=== PATIENT | female | born 1955 | race Caucasian/White ===

== ENCOUNTER 2018-03-11 14:53 | Inpatient (IN) | payer MEDICAID ==
[2018-03-11 14:57] VITALS: BMI 29.2
[2018-03-11] MEDS ORDERED: Sodium Chloride 0.9% 500 ML IV ONE (15:18)
--- NOTE | 2018-03-11 15:45 | C.PDOC ---
History Of Present Illness 62 year old female with multiple medical problems including Lupus and RA presents to the emergency department with complaints of a one to two day history of very dark urine and left flank pain radiating towards the groin with some dysuria. Patient reports that she visited a pharmacy in [place] where she was given two separate courses of Ciprofloxacin, one for three days and one for five days. She denies nausea, vomiting, and diarrhea. Time Seen by Provider: 03/11/18 15:05 Chief Complaint (Nursing): Female Genitourinary History Per: Patient Onset/Duration Of Symptoms: Days (1-2) Current Symptoms Are (Timing): Still Present Quality Of Discomfort: "Pain" Associated Symptoms: Urinary Symptoms (dysuria). denies: Fever, Chills Past Medical History Reviewed: Historical Data, Nursing Documentation, Vital Signs Vital Signs: Last Vital Signs Temp 97.5 F L 03/11/18 14:57 Pulse 99 H 03/11/18 14:57 Resp 18 03/11/18 14:57 BP 126/83 03/11/18 14:57 Pulse Ox 97 03/11/18 17:05 - Medical History PMH: Anxiety (NO MEDS AT PRESENT), Arthritis, Asthma, Colonic Polyps, Depression (NO MEDS AT PRESENT), Gastritis, Gall Bladder Disease, Hypercholesterolemia, Rheumatoid Arthritis Denies: Chronic Kidney Disease Surgical History: Cholecystectomy, Endoscopy - [facility] Procedures CLOSED ENDOSCOPIC BIOPSY OF LARGE INTESTINE (04/11/14) COLONOSCOPY (11/27/13) ESOPHAGOGASTRODUODENOSCOPY [EGD] W/CLOSED BIOPSY (04/23/14) Family History: States: No Known Family Hx - Social History Hx Alcohol Use: No Hx Substance Use: No - Immunization History Hx Tetanus Toxoid Vaccination: No Hx Influenza Vaccination: No Hx Pneumococcal Vaccination: No Review Of Systems Constitutional: Negative for: Fever, Chills Gastrointestinal: Negative for: Nausea, Vomiting, Diarrhea Genitourinary: Positive for: Dysuria Musculoskeletal: Positive for: Back Pain (left flank pain), Other (groin pain) Physical Exam - Physical Exam Appears: Non-toxic, No Acute Distress Skin: Warm, Dry Head: Atraumatic, Normacephalic Eye(s): bilateral: Normal Inspection Nose: Normal Neck: Normal, Supple Chest: Symmetrical, No Tenderness Cardiovascular: Rhythm Regular, No Murmur Respiratory: Normal Breath Sounds, No Rales, No Rhonchi, No Wheezing Gastrointestinal/Abdominal: Normal Exam, Soft, Tenderness (LLQ), No Guarding, No Rebound Back: Normal Inspection, CVA Tenderness (left-sided) Extremity: Normal ROM Neurological/Psych: Oriented x3, Normal Speech, Normal Cognition ED Course And Treatment - Laboratory Results Result Diagrams: 03/11/18 15:50 03/11/18 15:50 O2 Sat by Pulse Oximetry: 97 (RA) Pulse Ox Interpretation: Normal Medical Decision Making Medical Decision Making: Impression: Pyelonephritis vs. Kidney Stone Plan: CT Abdomen and Pelvis CMP CBC Morphine 2mg IVP NaCl IV Fluids Toradol 15mg IVP Tylenol 975mg PO Urine Culture Urinalysis 1700 pt with pain still; second dose toradol given. dose rocephin given . discussed with dr healy, pt to be admitted to his service. Disposition Discussed With .: Cesar Beverly Doctor Will See Patient In The: Hospital Counseled Patient/Family Regarding: Studies Performed, Diagnosis - Disposition Disposition: HOSPITALIZED Disposition Time: 17:06 Condition: STABLE Forms: [employer] (British) - Clinical Impression Clinical Impression: Pyelonephritis, acute - PA / TOOL AND DIE TECHNICIAN / Resident Statement MD/DO has reviewed & agrees with the documentation as recorded. - Scribe Statement The provider has reviewed the documentation as recorded by the Scribe (Ramon Vargas) All medical record entries made by the Scribe were at my direction and personally dictated by me. I have reviewed the chart and agree that the record accurately reflects my personal performance of the history, physical exam, medical decision making, and the department course for this patient. I have also personally directed, reviewed, and agree with the discharge instructions and disposition.
[2018-03-11 15:55] LABS: BASO # 0.1 K/uL (0.0-0.2); BASO % 0.5 % (0.0-2.0); EOS # 0.1 K/uL (0.0-0.7); EOS % 0.5 % (0.0-4.0); HEMOGLOBIN 15.6 g/dL (11.0-16.0); LYMPH # 2.8 K/uL (1.0-4.3); LYMPH % 23.7 % (20.0-40.0); MEAN CELL VOLUME 92.7 fL (81.0-99.0); MEAN CORPUSCULAR HGB CONC 33.5 g/dL (33.0-37.0); MEAN PLATELET VOLUME 8.4 fL (7.2-11.7); MONO # 0.7 K/uL (0.0-0.8); MONO % 5.5 % (0.0-10.0); NEUT # 8.4 K/uL (1.8-7.0); NEUT % 69.8 % (50.0-75.0); NRBC % 0.1 % (0.0-2.0); RBC 5.02 Mil/uL (3.80-5.20)
[2018-03-11 16:01] LABS: URINE BILIRUBIN NEGATIVE (NEGATIVE); URINE BLOOD 3+ (NEGATIVE); URINE CLARITY Hazy (Clear); URINE COLOR Amber (YELLOW); URINE GLUCOSE (UA) NORMAL (Normal); URINE LEUKOCYTE ESTERASE 3+ Leu/uL (Negative); URINE PROTEIN 2+ mg/dL (NEGATIVE); URINE UROBILINOGEN NORMAL mg/dL (0.2-1.0)
[2018-03-11 16:07] LABS: ALB/GLOB RATIO 1.3 (1.0-2.1); ALBUMIN 4.4 g/dL (3.5-5.0); ALT/SGPT 15 U/L (9-52); AST/SGOT 17 U/L (14-36); BLOOD UREA NITROGEN 17 mg/dL (7-17); CALCIUM 9.7 mg/dl (8.6-10.4); GFR AFRICAN-AMERICAN > 60; GFR NON-AFRICAN AMERICAN > 60
[2018-03-11] MEDS ORDERED: cefTRIAXone IV 1 gm in Dextros 1 GM in Dextrose 5% In Water 50 ML IVPB STA (16:19)
--- NOTE | 2018-03-11 16:25 | CT ---
Date of service: 03/11/2018 PROCEDURE: CT Abdomen and Pelvis without intravenous contrast HISTORY: left flank pain hematuria COMPARISON: None. TECHNIQUE: Multiple contiguous axial images were performed through the abdomen and pelvis without the use of intravenous contrast. Subsequently, sagittal and coronal reformatted images were obtained. Radiation dose: Total exam DLP = 612 mGy-cm. This CT exam was performed using one or more of the following dose reduction techniques: Automated exposure control, adjustment of the mA and/or kV according to patient size, and/or use of iterative reconstruction technique. FINDINGS: LOWER THORAX: Atelectasis at the lung bases. Punctate 1-2 millimeter pulmonary nodules within the inferior aspect of the right upper lobe. LIVER: Within the lateral peripheral aspect of the right lobe liver on series 3, image 29 at the junction with the right adrenal gland there is an ovoid low-attenuation 1.3 centimeter lesion demonstrating a Hounsfield unit attenuation of approximately 1. This is of uncertain clinical etiology and may represent a hepatic and or adrenal lesion. Correlation with thin slice multiphasic CT would be helpful for further evaluation if clinically indicated. GALLBLADDER AND BILE DUCTS: Prior cholecystectomy. PANCREAS: Unremarkable. No gross lesion or ductal dilatation. SPLEEN: Unremarkable. ADRENALS: See above. KIDNEYS AND URETERS: Large 1.6 centimeter calculus seen within the midpole of the left kidney without evidence gross hydronephrosis. Punctate 2 millimeter calculus seen within the lower pole of the left kidney. 1.2 centimeter low-attenuation lesion seen within the lower pole of the left kidney, too small to adequately characterize. VASCULATURE: Calcification and plaque within the aorta and vessels. BOWEL: Diverticulosis. Under distended descending and sigmoid colon. Mild fecal retention in the right hemicolon. APPENDIX: Not well visualized. PERITONEUM: Unremarkable. No free fluid. No free air. LYMPH NODES: Shotty para-aortic and mesenteric lymph nodes. Lymph BLADDER: Unremarkable. REPRODUCTIVE: Unremarkable. BONES: No acute fracture. OTHER FINDINGS: None. IMPRESSION: 1. Large 1.6 centimeter calculus seen within the midpole of the left kidney without evidence gross hydronephrosis. Punctate 2 millimeter calculus seen within the lower pole of the left kidney. 1.2 centimeter low-attenuation lesion seen within the lower pole of the left kidney, too small to adequately characterize. 2. Within the lateral peripheral aspect of the right lobe liver on series 3, image 29 at the junction with the right adrenal gland there is an ovoid low-attenuation 1.3 centimeter lesion demonstrating a Hounsfield unit attenuation of approximately 1. This is of uncertain clinical etiology and may represent a hepatic and or adrenal lesion. Correlation with thin slice multiphasic CT would be helpful for further evaluation if clinically indicated. 3. Diverticulosis. Under distended descending and sigmoid colon. Mild fecal retention in the right hemicolon.
[2018-03-11] MEDS ORDERED: cefTRIAXone IV 1 gm in Dextros 50 ML IVPB ONE (16:27)
[2018-03-11 18:49] VITALS: RESP 20
[2018-03-11] MEDS: Oxycodone/Acetaminophen 5/325 mg Tab PO PRN (19:11)
[2018-03-12] MEDS: Oxycodone/Acetaminophen 5/325 mg Tab PO PRN ×3 (03:14→17:52)
[2018-03-12] MEDS: Sucralfate 1 gm/10 ml Oral Susp UD PO SCH ×2 (09:50→17:54)
[2018-03-12] MEDS: Pantoprazole 40 mg EC Tab PO SCH (09:50)
[2018-03-12] MEDS: Enoxaparin 40 mg Syringe SC SCH (09:52)
[2018-03-13] MEDS: Oxycodone/Acetaminophen 5/325 mg Tab PO PRN ×4 (01:45→19:00)
--- NOTE | 2018-03-13 07:45 | HP ---
HISTORY OF PRESENT ILLNESS: The patient chief complaint fever, weakness, and abdominal pain. The patient has past kidney stone and progressive pyelonephritis. Advised admission. PHYSICAL EXAMINATION: GENERAL: The patient is awake, alert, and oriented. VITAL SIGNS: Temperature 98, pulse 90. HEENT: Within normal limits. NECK: Supple. CHEST: Symmetrical. HEART: Regular. ABDOMEN: Left flank tenderness. EXTREMITIES: No edema. ASSESSMENT AND PLAN: The patient suffers from pyelonephritis, kidney stone. The patient to get bed rest. IV antibiotics. consult. Cesar Beverly MD
[2018-03-13] MEDS: Sucralfate 1 gm/10 ml Oral Susp UD PO SCH ×2 (09:05→20:01)
[2018-03-13] MEDS: Pantoprazole 40 mg EC Tab PO SCH (09:06)
--- NOTE | 2018-03-13 11:05 | CP.PCM.PN ---
Subjective - Date & Time of Evaluation Date of Evaluation: 03/13/18 Time of Evaluation: 11:02 - Subjective Subjective: Patient seen and examined at bedside. Per nursing no acute events occurred overnight. Patient still reports some left sided flank pain and gross blood in the urine. She denies any chest pain, shortness of breath, fevers, chills, nausea, vomiting, changes in vision, abdominal pain, or any other complaints. Objective - Vital Signs/Intake and Output Vital Signs (last 24 hours): Temp Pulse Resp BP Pulse Ox 97.5 F L 69 20 152/73 H 95 03/13/18 07:45 03/13/18 07:45 03/13/18 07:45 03/13/18 07:45 03/13/18 07:45 Intake and Output: 03/13/18 03/13/18 06:59 18:59 Intake Total 540 Balance 540 - Medications Medications: Current Medications Enoxaparin Sodium (Lovenox) 40 mg SC DAILY [facility] Last Admin: 03/12/18 09:52 Dose: Not Given Hydroxychloroquine Sulfate (Plaquenil) 200 mg PO BID [facility] PRN Reason: Protocol Last Admin: 03/13/18 09:06 Dose: 200 mg Meropenem 1 gm/ Sodium (Chloride) 100 mls @ 100 mls/hr IVPB Q8 [facility] PRN Reason: Protocol Morphine Sulfate (Morphine) 2 mg IVP Q4H PRN PRN Reason: Pain, severe (8-10) Last Admin: 03/13/18 08:42 Dose: 2 mg Oxycodone/Acetaminophen (Percocet 5/325 Mg Tab) 1 tab PO Q4H PRN PRN Reason: Pain, moderate (4-7) Stop: 03/14/18 18:59 Last Admin: 03/13/18 09:39 Dose: 1 tab Pantoprazole Sodium (Protonix Ec Tab) 40 mg PO DAILY [facility] Last Admin: 03/13/18 09:06 Dose: 40 mg Rosuvastatin Calcium (Crestor) 5 mg PO HS [facility] Last Admin: 03/12/18 21:42 Dose: 5 mg Sucralfate (Carafate Oral Susp) 1 gm PO BID [facility] Last Admin: 03/13/18 09:05 Dose: 1 gm - Labs Labs: 03/11/18 15:50 03/11/18 15:50 - Head Exam Head Exam: ATRAUMATIC, NORMAL INSPECTION, NORMOCEPHALIC - Eye Exam Eye Exam: EOMI, Normal appearance, PERRL Pupil Exam: NORMAL ACCOMODATION, PERRL. absent: Irregular, Unequal - ENT Exam ENT Exam: Mucous Membranes Moist, Normal Exam, Normal Oropharynx - Respiratory Exam Respiratory Exam: Clear to Ausculation Bilateral, NORMAL BREATHING PATTERN. absent: Chest Wall Tenderness, Prolonged Expiratory Phase, Respiratory Distress - Cardiovascular Exam Cardiovascular Exam: REGULAR RHYTHM, +S1, +S2 - GI/Abdominal Exam GI & Abdominal Exam: Soft, Normal Bowel Sounds. absent: Rigid, Hyperactive Bowel Sounds - Extremities Exam Extremities Exam: Normal Inspection. absent: Pedal Edema - Back Exam Back Exam: CVA tenderness (L), NORMAL INSPECTION. absent: CVA tenderness (R), paraspinal tenderness - Neurological Exam Neurological Exam: Alert, Awake, CN II-XII Intact, Oriented x3 - Psychiatric Exam Psychiatric exam: Normal Affect, Normal Mood - Skin Skin Exam: Dry, Intact, Normal Color Assessment and Plan - Assessment and Plan (Free Text) Assessment: 62 year old female with a past medical history of lupus, rheumatoid arthritits, depression, nephrolithiasis, pyelonephritis and hypercholesterolemia who was admitted for left flank pain and dysuria. Plan: 1.UTI -Urine cultures: positive growth for Proteus Mirabilis -Meropenem IV Q8 Started (Day 1: 03/13/18) -Infectious Disease (Dr. Hitchcock) Consulted. Help appreciated. -Encourage oral hydration 2.Nephrolithiais -Abdomen/pelvis CT: Shows Large 1.6cm calculus within midpole without hydronephrosis -Urology (Dr. Castellanos) consulted. Help appreciated. -Morphine 2mg IVP Q4 PRN for pain management. 3.history of hypercholesterolemia -Continue Crestor 5mg PO HS [facility]. PPX -Lovenox -Protonix Plan discussed with Attending Dr. Beverly. Presley Sims, PGY-2
[2018-03-13] MEDS: Enoxaparin 40 mg Syringe SC SCH (11:34)
--- NOTE | 2018-03-13 12:58 | CP.PCM.CON ---
History of Present Illness - History of Present Illness History of Present Illness: 62 year old female with multiple medical problems including Lupus and RA presents to the emergency department with complaints of a one to two day history of very dark urine and left flank pain radiating towards the groin with some dysuria. Patient reports that she visited a pharmacy in [place] where she was given two separate courses of Ciprofloxacin, one for three days and one for five days. She denies nausea, vomiting, and diarrhea. still c/o left flank pain and dark urine iv rx in progress - Medical History PMH: Anxiety (NO MEDS AT PRESENT), Arthritis, Asthma, Colonic Polyps, Depression (NO MEDS AT PRESENT), Gastritis, Gall Bladder Disease, Hypercholesterolemia, Rheumatoid Arthritis Denies: Chronic Kidney Disease Surgical History: Cholecystectomy, Endoscopy - [facility] Procedures CLOSED ENDOSCOPIC BIOPSY OF LARGE INTESTINE (04/11/14) COLONOSCOPY (11/27/13) ESOPHAGOGASTRODUODENOSCOPY [EGD] W/CLOSED BIOPSY (04/23/14) Review of Systems - Review of Systems All systems: reviewed and no additional remarkable complaints except - Constitutional Constitutional: As Per HPI - EENT Eyes: absent: As Per HPI, Blind Spots, Blurred Vision, Change in Vision, Decreased Night Vision, Diplopia, Discharge, Dry Eye, Exophthalmos, Floaters, Irritation, Itchy Eyes, Loss of Peripheral Vision, Pain, Photophobia, Requires Corrective Lenses, Sees Flashes, Spots in Vision, Tunnel Vision, Other Visual Disturbances, Loss of Vision, Other Ears: absent: As Per HPI, Decreased Hearing, Ear Discharge, Ear Pain, Tinnitus, Abnormal Hearing, Disequilibrium, Dizziness, Other Nose/Mouth/Throat: absent: As Per HPI, Epistaxis, Nasal Congestion, Nasal Discharge, Nasal Obstruction, Nasal Trauma, Nose Pain, Post Nasal Drip, Sinus Pain, Sinus Pressure, Bleeding Gums, Change in Voice, Dental Pain, Dry Mouth, Dysphagia, Halitosis, Hoarsness, Lip Swelling, Mouth Lesions, Mouth Pain, Odynophagia, Sore Throat, Throat Swelling, Tongue Swelling, Facial Pain, Neck Pain, Neck Mass, Other - Breasts Breasts: absent: As Per HPI, Change in Shape, Mass, Pain, Nipple Discharge, Nipple Inversion, Skin Changes, Swelling, Other - Cardiovascular Cardiovascular: absent: As Per HPI, Acrocyanosis, Chest Pain, Chest Pain at Rest , Chest Pain with Activity, Claudication, Diaphoresis, Dyspnea, Dyspnea on Exertion, Edema, Irregular Heart Rhythm, Pain Radiating to Arm/Neck/Jaw, Leg Edema, Leg Ulcers, Lightheadedness, Orthopnea, Palpitations, Paroxysmal Nocturnal Dyspnea, Pedal Edema, Radiating Pain, Rapid Heart Rate, Slow Heart Rate, Syncope, Other - Respiratory Respiratory: absent: As Per HPI, Cough, Dyspnea, Hemoptysis, Dyspnea on Exertion , Wheezing, Snoring, Stridor, Pain on Inspiration, Chest Congestion, Excessive Mucous Production, Change in Mucous Color, Pain with Coughing, Other - Gastrointestinal Gastrointestinal: absent: As Per HPI, Abdominal Pain, Belching, Bloating, Change in Bowel Habits, Change in Stool Character, Coffee Ground Emesis, Constipation, Cramping, Diarrhea, Dyspepsia, Dysphagia, Early Satiety, Excessive Flatus, Fecal Incontinence, Heartburn, Hematemesis, Hematochezia, Loose Stools, Melena, Nausea, Odynophagia, Temesmus, Vomiting, Other - Genitourinary Genitourinary: As Per HPI - Reproductive: Female Reproductive:Female: absent: As Per HPI, Amenorrhea, Amenorrhea/ Control, Currently Menstual, Cycle <21 Days, Cycle >35 Days, Cycle Variable, Menses 1-7 Days, Menses >/= 8 Days, Menses Variable, Cycle > 4 Weeks Between, No Menses for 6 Months, Heavy Menses, Light Menses, Normal Menses, Spotting Between Cycles , S/P Hysterectomy, Menopausal, Post Menopausal, Premenarche, Abnormal Vaginal Bleeding, Dysmenorrhea, Dyspareunia, Genital Lesions, Genital Pruritis, Pelvic Pain, Prolapse Symptoms, Sexual Dysfunction, Vaginal Discharge, Vaginal Dryness , Vaginal Odor, Vaginal Pruritis, Other - Menstruation Menstruation: absent: As Per HPI, Amenorrhea, Amenorrhea/ Control, Currently Menstual, Cycle <21 Days, Cycle >35 Days, Cycle Variable, Menses 1-7 Days, Menses >/= 8 Days, Menses Variable, Cycle > 4 Weeks Between, No Menses for 6 Months, Heavy Menses, Light Menses, Normal Menses, Spotting Between Cycles , S/P Hysterectomy, Menopausal, Post Menopausal, Premenarche, Abnormal Vaginal Bleeding, Dysmenorrhea, Other - Integumentary Integumentary: absent: As Per HPI, Acne, Alopecia, Bleeding Lesions, Change in Hair, Change in Nails, Change in Pigmentation, Changing Lesions, Dry Skin, Erythema, Furuncle, Hirsutism, Lesions, New Lesions, Non-Healing Lesions, Photosensitivity, Pruritus, Rash, Skin Pain, Skin Ulcer, Sores, Striae, Swelling , Unusual Bruising, Wounds, Jaundice, Other - Neurological Neurological: absent: As Per HPI, Abnormal Gait, Abnormal Hearing, Abnormal Movements, Abnormal Speech, Behavioral Changes, Burning Sensations, Confusion, Convulsions, Disequilibrium, Dizziness, Numbness, Focal Weakness, Frequent Falls , Headaches, Lack of Coordination, Loss of Vision, Memory Loss, Paresthesias, Radicular Pain, Restless Legs, Sensory Deficit, Syncope, Tingling, Tremor, Vertigo, Weakness, Other Visual Disturbances, Other Past Patient History - Past Medical History & Family History Past Medical History?: Yes - Past Social History Smoking Status: Current Some Days Smoker - CARDIAC Hx Hypercholesterolemia: Yes - PULMONARY Hx Asthma: Yes - NEUROLOGICAL Hx Neurological Disorder: No - HEENT Hx HEENT Problems: No - RENAL Hx Chronic Kidney Disease: No - ENDOCRINE/METABOLIC Hx Endocrine Disorders: Yes Hx Systemic Lupus Erythematosus: Yes - HEMATOLOGICAL/ONCOLOGICAL Hx Blood Disorders: No - INTEGUMENTARY Hx Dermatological Problems: No - MUSCULOSKELETAL/RHEUMATOLOGICAL Hx Arthritis: Yes Hx Rheumatoid Arthritis: Yes - GASTROINTESTINAL Hx Gall Bladder Disease: Yes Hx Gastritis: Yes - GENITOURINARY/GYNECOLOGICAL Hx Genitourinary Disorders: No - PSYCHIATRIC Hx Anxiety: Yes (NO MEDS AT PRESENT) Hx Depression: Yes (NO MEDS AT PRESENT) Hx Substance Use: No - SURGICAL HISTORY Hx Cholecystectomy: Yes - ANESTHESIA Hx Anesthesia: Yes Hx Anesthesia Reactions: No Hx Malignant Hyperthermia: No Meds Allergies/Adverse Reactions: Allergies Allergy/AdvReac Type Severity Reaction Status Date / Time No Known Allergies Allergy Verified 03/11/18 14:57 - Medications Medications: Current Medications Enoxaparin Sodium (Lovenox) 40 mg SC DAILY [facility] Last Admin: 03/13/18 11:34 Dose: Not Given Hydroxychloroquine Sulfate (Plaquenil) 200 mg PO BID [facility] PRN Reason: Protocol Last Admin: 03/13/18 09:06 Dose: 200 mg Meropenem 1 gm/ Sodium (Chloride) 100 mls @ 100 mls/hr IVPB Q8 [facility] PRN Reason: Protocol Morphine Sulfate (Morphine) 2 mg IVP Q4H PRN PRN Reason: Pain, severe (8-10) Last Admin: 03/13/18 08:42 Dose: 2 mg Oxycodone/Acetaminophen (Percocet 5/325 Mg Tab) 1 tab PO Q4H PRN PRN Reason: Pain, moderate (4-7) Stop: 03/14/18 18:59 Last Admin: 03/13/18 09:39 Dose: 1 tab Pantoprazole Sodium (Protonix Ec Tab) 40 mg PO DAILY [facility] Last Admin: 03/13/18 09:06 Dose: 40 mg Rosuvastatin Calcium (Crestor) 5 mg PO HS [facility] Last Admin: 03/12/18 21:42 Dose: 5 mg Sucralfate (Carafate Oral Susp) 1 gm PO BID [facility] Last Admin: 03/13/18 09:05 Dose: 1 gm Physical Exam - Constitutional Appears: Non-toxic, Chronically Ill - Head Exam Head Exam: NORMOCEPHALIC - Eye Exam Eye Exam: PERRL - ENT Exam ENT Exam: Mucous Membranes Dry - Neck Exam Neck exam: Negative for: Lymphadenopathy - Respiratory Exam Respiratory Exam: Decreased Breath Sounds - Cardiovascular Exam Cardiovascular Exam: REGULAR RHYTHM - GI/Abdominal Exam GI & Abdominal Exam: Diminished Bowel Sounds, Distended, Soft. absent: Tenderness - Rectal Exam Rectal Exam: Deferred - Exam Exam: NORMAL INSPECTION - Extremities Exam Extremities exam: Negative for: pedal edema - Back Exam Back exam: CVA tenderness (L). absent: CVA tenderness (R), paraspinal tenderness - Neurological Exam Neurological exam: Alert, CN II-XII Intact, Oriented x3, Reflexes Normal - Psychiatric Exam Psychiatric exam: Normal Mood - Skin Skin Exam: Dry Results - Vital Signs Recent Vital Signs: Last Vital Signs Temp 97.5 F L 03/13/18 07:45 Pulse 69 03/13/18 07:45 Resp 20 03/13/18 07:45 BP 152/73 H 03/13/18 07:45 Pulse Ox 95 03/13/18 07:45 - Labs Result Diagrams: 03/11/18 15:50 03/11/18 15:50 Assessment & Plan (1) Pyelonephritis, acute Status: Acute - Assessment and Plan (Free Text) Assessment: cont iv rx CT abd noted await cultures consider eval
[2018-03-13] MEDS: Meropenem 1 GM in Sodium Chloride 0.9% 100 ML IVPB SCH ×2 (13:39→21:02)
[2018-03-14] MEDS: Meropenem 1 GM in Sodium Chloride 0.9% 100 ML IVPB SCH ×3 (05:00→21:37)
--- NOTE | 2018-03-14 07:40 | PN ---
DATE: 03/13/2018 SUBJECTIVE: The patient's urine cultures were positive. Sensitive to meropenem. At this point, change Ambien to antibiotics. Get ID consult, Urology consult . Cesar Beverly MD
--- NOTE | 2018-03-14 07:48 | CP.PCM.PN ---
Subjective - Date & Time of Evaluation Date of Evaluation: 03/14/18 Time of Evaluation: 07:48 - Subjective Subjective: Patient seen and examined at bedside. Per nursing no acute events occurred overnight. Patient still reports some left sided flank pain and gross blood in the urine. She denies any chest pain, shortness of breath, fevers, chills, nausea, vomiting, changes in vision, abdominal pain, or any other complaints. Objective - Vital Signs/Intake and Output Vital Signs (last 24 hours): Temp Pulse Resp BP Pulse Ox 98.4 F 71 20 140/85 97 03/13/18 23:17 03/13/18 23:17 03/13/18 23:17 03/13/18 23:17 03/13/18 23:17 Intake and Output: 03/14/18 03/14/18 06:59 18:59 Intake Total 500 Balance 500 - Medications Medications: Current Medications Enoxaparin Sodium (Lovenox) 40 mg SC DAILY [facility] Last Admin: 03/13/18 11:34 Dose: Not Given Hydroxychloroquine Sulfate (Plaquenil) 200 mg PO BID [facility] PRN Reason: Protocol Last Admin: 03/13/18 20:01 Dose: 200 mg Meropenem 1 gm/ Sodium (Chloride) 100 mls @ 100 mls/hr IVPB Q8 [facility] PRN Reason: Protocol Last Admin: 03/14/18 05:00 Dose: 100 mls/hr Morphine Sulfate (Morphine) 2 mg IVP Q4H PRN PRN Reason: Pain, severe (8-10) Last Admin: 03/14/18 04:30 Dose: 2 mg Oxycodone/Acetaminophen (Percocet 5/325 Mg Tab) 1 tab PO Q4H PRN PRN Reason: Pain, moderate (4-7) Stop: 03/14/18 18:59 Last Admin: 03/13/18 19:00 Dose: 1 tab Pantoprazole Sodium (Protonix Ec Tab) 40 mg PO DAILY [facility] Last Admin: 03/13/18 09:06 Dose: 40 mg Rosuvastatin Calcium (Crestor) 5 mg PO HS [facility] Last Admin: 03/13/18 21:05 Dose: 5 mg Sucralfate (Carafate Oral Susp) 1 gm PO BID [facility] Last Admin: 03/13/18 20:01 Dose: 1 gm - Labs Labs: 03/11/18 15:50 03/11/18 15:50 - Head Exam Head Exam: ATRAUMATIC, NORMAL INSPECTION, NORMOCEPHALIC - Eye Exam Eye Exam: EOMI, Normal appearance, PERRL Pupil Exam: NORMAL ACCOMODATION, PERRL - Respiratory Exam Respiratory Exam: Clear to Ausculation Bilateral, NORMAL BREATHING PATTERN - Cardiovascular Exam Cardiovascular Exam: REGULAR RHYTHM, +S1, +S2 - GI/Abdominal Exam GI & Abdominal Exam: Soft, Normal Bowel Sounds - Neurological Exam Neurological Exam: Alert, Awake, CN II-XII Intact, Normal Gait, Oriented x3 - Psychiatric Exam Psychiatric exam: Normal Affect, Normal Mood - Skin Skin Exam: Dry, Intact Assessment and Plan - Assessment and Plan (Free Text) Plan: 1.UTI -Urine cultures: positive growth for Proteus Mirabilis -Meropenem IV Q8 Started (Day 2 : 03/13/18) -Infectious Disease (Dr. Hitchcock) Consulted. Help appreciated. -Encourage oral hydration 2.Nephrolithiais -Abdomen/pelvis CT: Shows Large 1.6cm calculus within midpole without hydronephrosis -Urology (Dr. Castellanos) consulted. Help appreciated. -Morphine 2mg IVP Q4 PRN for pain management. 3.history of hypercholesterolemia -Continue Crestor 5mg PO HS [facility]. PPX -Lovenox -Protonix Plan discussed with Attending Dr. Beverly. Presley Sims, PGY-2
[2018-03-14] MEDS: Sucralfate 1 gm/10 ml Oral Susp UD PO SCH ×2 (09:51→17:15)
[2018-03-14] MEDS: Enoxaparin 40 mg Syringe SC SCH (09:51)
[2018-03-14] MEDS: Pantoprazole 40 mg EC Tab PO SCH (09:51)
--- NOTE | 2018-03-14 13:13 | CP.PCM.PN ---
Subjective - Date & Time of Evaluation Date of Evaluation: 03/14/18 Time of Evaluation: 07:00 - Subjective Subjective: growing esbl + in urine iv rx in progress c/o pain no oral equivalent needs 14 days rx eval Objective - Vital Signs/Intake and Output Vital Signs (last 24 hours): Temp Pulse Resp BP Pulse Ox 98.1 F 81 20 131/80 95 03/14/18 08:14 03/14/18 08:14 03/14/18 08:14 03/14/18 08:14 03/14/18 08:14 Intake and Output: 03/14/18 03/14/18 06:59 18:59 Intake Total 1030 Balance 1030 - Medications Medications: Current Medications Enoxaparin Sodium (Lovenox) 40 mg SC DAILY [facility] Last Admin: 03/14/18 09:51 Dose: 40 mg Hydroxychloroquine Sulfate (Plaquenil) 200 mg PO BID [facility] PRN Reason: Protocol Last Admin: 03/14/18 09:51 Dose: 200 mg Meropenem 1 gm/ Sodium (Chloride) 100 mls @ 100 mls/hr IVPB Q8 [facility] PRN Reason: Protocol Last Admin: 03/14/18 05:00 Dose: 100 mls/hr Morphine Sulfate (Morphine) 2 mg IVP Q4H PRN PRN Reason: Pain, severe (8-10) Last Admin: 03/14/18 12:40 Dose: 2 mg Oxycodone/Acetaminophen (Percocet 5/325 Mg Tab) 1 tab PO Q4H PRN PRN Reason: Pain, moderate (4-7) Stop: 03/14/18 18:59 Last Admin: 03/13/18 19:00 Dose: 1 tab Pantoprazole Sodium (Protonix Ec Tab) 40 mg PO DAILY [facility] Last Admin: 03/14/18 09:51 Dose: 40 mg Rosuvastatin Calcium (Crestor) 5 mg PO HS [facility] Last Admin: 03/13/18 21:05 Dose: 5 mg Sucralfate (Carafate Oral Susp) 1 gm PO BID [facility] Last Admin: 03/14/18 09:51 Dose: 1 gm - Labs Labs: 03/11/18 15:50 03/11/18 15:50 - Constitutional Appears: Well - Head Exam Head Exam: ATRAUMATIC, NORMAL INSPECTION, NORMOCEPHALIC - Eye Exam Eye Exam: EOMI, Normal appearance, PERRL Pupil Exam: NORMAL ACCOMODATION, PERRL - ENT Exam ENT Exam: Mucous Membranes Moist, Normal Exam - Neck Exam Neck Exam: Full ROM, Normal Inspection. absent: Lymphadenopathy - Respiratory Exam Respiratory Exam: Clear to Ausculation Bilateral, NORMAL BREATHING PATTERN - Cardiovascular Exam Cardiovascular Exam: REGULAR RHYTHM, +S1, +S2. absent: Murmur - GI/Abdominal Exam GI & Abdominal Exam: Soft, Normal Bowel Sounds. absent: Tenderness - Rectal Exam Rectal Exam: NORMAL INSPECTION - Exam Exam: NORMAL INSPECTION - Extremities Exam Extremities Exam: Full ROM, Normal Capillary Refill, Normal Inspection. absent : Joint Swelling, Pedal Edema - Back Exam Back Exam: NORMAL INSPECTION - Neurological Exam Neurological Exam: Alert, Awake, CN II-XII Intact, Normal Gait, Oriented x3 - Psychiatric Exam Psychiatric exam: Normal Affect, Normal Mood - Skin Skin Exam: Dry, Intact, Normal Color, Warm Assessment and Plan (1) Pyelonephritis, acute Status: Acute - Assessment and Plan (Free Text) Assessment: cont iv rx x 14 days
[2018-03-14 14:07] LABS: BASO % 0.4 % (0.0-2.0); EOS # 0.1 K/uL (0.0-0.7); EOS % 0.6 % (0.0-4.0); HEMOGLOBIN 14.8 g/dL (11.0-16.0); MEAN CELL VOLUME 92.6 fL (81.0-99.0); MEAN CORPUSCULAR HEMOGLOBIN 31.3 pg (27.0-31.0); MEAN CORPUSCULAR HGB CONC 33.8 g/dL (33.0-37.0); MEAN PLATELET VOLUME 8.1 fL (7.2-11.7); MONO # 0.6 K/uL (0.0-0.8); MONO % 5.5 % (0.0-10.0); NEUT # 7.9 K/uL (1.8-7.0); NEUT % 74.5 % (50.0-75.0); NRBC % 0.1 % (0.0-2.0); RBC 4.74 Mil/uL (3.80-5.20); RED CELL DISTRIBUTION WIDTH 14.8 % (11.5-14.5); WHITE BLOOD COUNT 10.5 K/uL (4.8-10.8)
[2018-03-14] MEDS: Oxycodone/Acetaminophen 5/325 mg Tab PO PRN (18:21)
[2018-03-15] MEDS: Meropenem 1 GM in Sodium Chloride 0.9% 100 ML IVPB SCH ×3 (05:50→21:34)
[2018-03-15] MEDS: Morphine 4 MG/ML VIAL IVP PRN ×5 (06:40→23:38)
[2018-03-15] MEDS: Pantoprazole 40 mg EC Tab PO SCH (10:12)
[2018-03-15] MEDS: Enoxaparin 40 mg Syringe SC SCH (10:12)
[2018-03-15] MEDS: Sucralfate 1 gm/10 ml Oral Susp UD PO SCH ×2 (10:12→18:09)
--- NOTE | 2018-03-15 11:33 | CP.PCM.PN ---
Subjective - Date & Time of Evaluation Date of Evaluation: 03/15/18 Time of Evaluation: 11:33 - Subjective Subjective: Patient seen and examined at bedside. Per nursing no acute events occurred overnight. Patient doesn't report any change in improvement. Patient does report an improvement in urinary symptoms and didn't have any gross blood over the past 24 hours. Patient denies any abdominal pain, fevers, chills, dizziness , shortness of breath, nausea, or any other complaints. Objective - Vital Signs/Intake and Output Vital Signs (last 24 hours): Temp Pulse Resp BP Pulse Ox 98.4 F 78 20 134/86 96 03/15/18 07:28 03/15/18 07:28 03/15/18 07:28 03/15/18 07:28 03/15/18 07:28 Intake and Output: 03/15/18 03/15/18 06:59 18:59 Intake Total 1030 Balance 1030 - Medications Medications: Current Medications Enoxaparin Sodium (Lovenox) 40 mg SC DAILY [facility] Last Admin: 03/15/18 10:12 Dose: 40 mg Hydroxychloroquine Sulfate (Plaquenil) 200 mg PO BID [facility] PRN Reason: Protocol Last Admin: 03/15/18 10:12 Dose: 200 mg Meropenem 1 gm/ Sodium (Chloride) 100 mls @ 100 mls/hr IVPB Q8 [facility] PRN Reason: Protocol Last Admin: 03/15/18 05:50 Dose: 100 mls/hr Morphine Sulfate (Morphine) 2 mg IVP Q4H PRN PRN Reason: Pain, severe (8-10) Last Admin: 03/15/18 10:53 Dose: 2 mg Pantoprazole Sodium (Protonix Ec Tab) 40 mg PO DAILY [facility] Last Admin: 03/15/18 10:12 Dose: 40 mg Rosuvastatin Calcium (Crestor) 5 mg PO HS [facility] Last Admin: 03/14/18 21:37 Dose: 5 mg Sucralfate (Carafate Oral Susp) 1 gm PO BID [facility] Last Admin: 03/15/18 10:12 Dose: 1 gm - Labs Labs: 03/14/18 14:01 03/11/18 15:50 - Head Exam Head Exam: ATRAUMATIC, NORMAL INSPECTION, NORMOCEPHALIC - Eye Exam Eye Exam: EOMI, Normal appearance, PERRL. absent: Periorbital tenderness Pupil Exam: NORMAL ACCOMODATION, PERRL. absent: Irregular, Unequal - ENT Exam ENT Exam: Mucous Membranes Moist, Normal Oropharynx - Respiratory Exam Respiratory Exam: Clear to Ausculation Bilateral, NORMAL BREATHING PATTERN. absent: Prolonged Expiratory Phase, Respiratory Distress - Cardiovascular Exam Cardiovascular Exam: REGULAR RHYTHM, +S1, +S2 - GI/Abdominal Exam GI & Abdominal Exam: Soft, Normal Bowel Sounds. absent: Rigid, Hyperactive Bowel Sounds - Extremities Exam Extremities Exam: Full ROM. absent: Joint Swelling, Pedal Edema - Back Exam Back Exam: NORMAL INSPECTION. absent: CVA tenderness (R), paraspinal tenderness - Neurological Exam Neurological Exam: Awake, CN II-XII Intact, Oriented x3 - Skin Skin Exam: Dry, Intact Assessment and Plan - Assessment and Plan (Free Text) Plan: 1.UTI -Urine cultures: positive growth for Proteus Mirabilis -Meropenem IV Q8 Started (Day 3 : 03/13/18) -Infectious Disease (Dr. Hitchcock) Consulted. Help appreciated. -Encourage oral hydration 2.Nephrolithiais -Abdomen/pelvis CT: Shows Large 1.6cm calculus within midpole without hydronephrosis -Urology (Dr. Castellanos) consulted. Help appreciated. -Morphine 2mg IVP Q4 PRN for pain management. 3.history of hypercholesterolemia -Continue Crestor 5mg PO HS [facility]. PPX -Lovenox -Protonix Disposition: Patient expected to be discharged today on IV antibiotics. Plan discussed with Attending Dr. Beverly. Presley Sims, PGY-2 Discharge Instructions: 1. Advised patient to follow up at [facility] located in the [facility] within five to seven days upon discharge. Patient has an appointment set up with Dr. Sims for 03/23/18. Patient given prescription for repeat CBC, CMP, U/A, Urine culture. 2 Advised patient to return to hospital for any new or worsening symptoms. Medications: 1.Ertapenem 1 gm Daily, #12 Days, No refills
--- NOTE | 2018-03-15 11:44 | CP.PCM.PN ---
Subjective - Date & Time of Evaluation Date of Evaluation: 03/15/18 Time of Evaluation: 08:00 - Subjective Subjective: pt with ESBL + Proteus in urine / pyelonephritis will require 14 days iv rx with merrem- then Invanz Objective - Vital Signs/Intake and Output Vital Signs (last 24 hours): Temp Pulse Resp BP Pulse Ox 98.4 F 78 20 134/86 96 03/15/18 07:28 03/15/18 07:28 03/15/18 07:28 03/15/18 07:28 03/15/18 07:28 Intake and Output: 03/15/18 03/15/18 06:59 18:59 Intake Total 1030 Balance 1030 - Medications Medications: Current Medications Enoxaparin Sodium (Lovenox) 40 mg SC DAILY [facility] Last Admin: 03/15/18 10:12 Dose: 40 mg Hydroxychloroquine Sulfate (Plaquenil) 200 mg PO BID [facility] PRN Reason: Protocol Last Admin: 03/15/18 10:12 Dose: 200 mg Meropenem 1 gm/ Sodium (Chloride) 100 mls @ 100 mls/hr IVPB Q8 [facility] PRN Reason: Protocol Last Admin: 03/15/18 05:50 Dose: 100 mls/hr Morphine Sulfate (Morphine) 2 mg IVP Q4H PRN PRN Reason: Pain, severe (8-10) Last Admin: 03/15/18 10:53 Dose: 2 mg Pantoprazole Sodium (Protonix Ec Tab) 40 mg PO DAILY [facility] Last Admin: 03/15/18 10:12 Dose: 40 mg Rosuvastatin Calcium (Crestor) 5 mg PO HS [facility] Last Admin: 03/14/18 21:37 Dose: 5 mg Sucralfate (Carafate Oral Susp) 1 gm PO BID [facility] Last Admin: 03/15/18 10:12 Dose: 1 gm - Labs Labs: 03/14/18 14:01 03/11/18 15:50 Assessment and Plan (1) Pyelonephritis, acute Status: Acute
[2018-03-15] MEDS ORDERED: ALBUTEROL IN PRN (12:39)
--- NOTE | 2018-03-15 16:54 | RAD ---
Date of service: 03/15/2018 HISTORY: verify right PICC COMPARISON: No prior. FINDINGS: LUNGS: No active pulmonary disease. PLEURA: No significant pleural effusion identified, no pneumothorax apparent. CARDIOVASCULAR: Normal heart size. No congestive change. Right PICC catheter noted terminating just above the level of the cavoatrial junction. OSSEOUS STRUCTURES: No significant abnormalities. VISUALIZED UPPER ABDOMEN: Normal. OTHER FINDINGS: None. IMPRESSION: Right PICC catheter. No infiltrate.
[2018-03-15] MEDS ORDERED: HYDROXYCHLOROQUINE SULFATE 200 MG PO SCH (18:00)
[2018-03-16] MEDS: Morphine 4 MG/ML VIAL IVP PRN ×3 (03:37→12:15)
[2018-03-16] MEDS: Meropenem 1 GM in Sodium Chloride 0.9% 100 ML IVPB SCH ×2 (05:19→13:03)
--- NOTE | 2018-03-16 07:28 | CP.PCM.PN ---
Subjective - Date & Time of Evaluation Date of Evaluation: 03/16/18 Time of Evaluation: 07:20 - Subjective Subjective: PGY2 note for Dr. Beverly's Service Pt seen and examined at bedside. Nursing reports patient afebrile overnight with no acute events transpiring. Patient found sitting at bedside. She reports being unable to find comfortable position due to persistent left sided flank pain. Describes pain as 8/10 "burning sensation" radiating from left flank to groin. Admits occasional burning with urination. Denies fever, chills, abd pain , N/V/D/C. Objective - Vital Signs/Intake and Output Vital Signs (last 24 hours): Temp Pulse Resp BP Pulse Ox 98.9 F 67 20 136/74 95 03/15/18 23:28 03/15/18 23:28 03/15/18 23:28 03/15/18 23:28 03/15/18 23:28 Intake and Output: 03/16/18 03/16/18 06:59 18:59 Intake Total 780 Balance 780 - Medications Medications: Current Medications Enoxaparin Sodium (Lovenox) 40 mg SC DAILY [facility] Last Admin: 03/15/18 10:12 Dose: 40 mg Hydroxychloroquine Sulfate (Plaquenil) 200 mg PO BID [facility] PRN Reason: Protocol Last Admin: 03/15/18 18:09 Dose: 200 mg Meropenem 1 gm/ Sodium (Chloride) 100 mls @ 100 mls/hr IVPB Q8 [facility] PRN Reason: Protocol Last Admin: 03/16/18 05:19 Dose: 100 mls/hr Morphine Sulfate (Morphine) 2 mg IVP Q4H PRN PRN Reason: Pain, severe (8-10) Last Admin: 03/16/18 03:37 Dose: 2 mg Pantoprazole Sodium (Protonix Ec Tab) 40 mg PO DAILY [facility] Last Admin: 03/15/18 10:12 Dose: 40 mg Rosuvastatin Calcium (Crestor) 5 mg PO HS [facility] Last Admin: 03/15/18 21:34 Dose: 5 mg Sucralfate (Carafate Oral Susp) 1 gm PO BID [facility] Last Admin: 03/15/18 18:09 Dose: 1 gm - Labs Labs: 03/14/18 14:01 03/11/18 15:50 - Additional Findings Additional findings: - Head Exam Head Exam: ATRAUMATIC, NORMAL INSPECTION, NORMOCEPHALIC - Eye Exam Eye Exam: EOMI, Normal appearance, PERRL. absent: Periorbital tenderness Pupil Exam: NORMAL ACCOMODATION, PERRL. absent: Irregular, Unequal - ENT Exam ENT Exam: Mucous Membranes Moist, Normal Oropharynx - Respiratory Exam Respiratory Exam: Clear to Ausculation Bilateral, NORMAL BREATHING PATTERN. absent: Prolonged Expiratory Phase, Respiratory Distress - Cardiovascular Exam Cardiovascular Exam: REGULAR RHYTHM, +S1, +S2 - GI/Abdominal Exam GI & Abdominal Exam: Soft, Normal Bowel Sounds. absent: Rigid, Hyperactive Bowel Sounds - Extremities Exam Extremities Exam: Full ROM. absent: Joint Swelling, Pedal Edema - Back Exam Back Exam: NORMAL INSPECTION, Girish sign positive on left. absent: CVA tenderness (R), paraspinal tenderness - Neurological Exam Neurological Exam: Awake, CN II-XII Intact, Oriented x3 - Skin Skin Exam: Dry, Intact Assessment and Plan - Assessment and Plan (Free Text) Plan: Pyelonephritis Admit to med/surg Urine cultures: positive growth for Proteus Mirabilis Infectious Disease (Dr. Hitchcock) Merrem x 14 days total, then Invanz Meropenem IV Q8 Started (Day 4 : 03/13/18) Encourage oral hydration Nephrolithiais -Abdomen/pelvis CT: Shows Large 1.6cm calculus within midpole without hydronephrosis -Urology (Dr. Castellanos) consulted. Help appreciated. -Morphine 2mg IVP Q4 PRN for pain management. History of Hypercholesterolemia Continue Crestor 5mg PO HS [facility] PPX Lovenox 40mg SC Daily Protonix 40mg PO Daily [facility] Disposition: Patient expected to be discharged today on 14 days of IV antibiotics. Deep Gerber, PGY-2 Plan discussed with Attending Dr. Beverly.
[2018-03-16 07:51] VITALS: BP 110/66; PULSE 72; TEMP 97.9; O2SAT 96
[2018-03-16] MEDS: Sucralfate 1 gm/10 ml Oral Susp UD PO SCH (09:38)
[2018-03-16] MEDS: Pantoprazole 40 mg EC Tab PO SCH (09:39)
[2018-03-16] MEDS: Enoxaparin 40 mg Syringe SC SCH (09:39)
[2018-03-16] MEDS ORDERED: Home Med 1 UNIT (Pantoprazole Sodium [Protonix] 40 MG) PO SCH (10:00)
== END 2018-03-16 14:30 | disposition home or self-care (01) | DRG 320 ==
LOC: C.ER 14:53 → C.9E 17:03 → C.3T 17:58 → OBSVTOIN 03-14 11:27
PROVIDERS: ADMIT Internal Medicine Pulmonary Disease; ATTEND Internal Medicine Pulmonary Disease
DX: N10 Acute pyelonephritis (principal); M32.9 Systemic lupus erythematosus, unspecified; M06.9 Rheumatoid arthritis, unspecified; N20.0 Calculus of kidney; J45.909 Unspecified asthma, uncomplicated; E78.00 Pure hypercholesterolemia, unspecified; F17.210 Nicotine dependence, cigarettes, uncomplicated; Z90.49 Acquired absence of other specified parts of digestive tract

== ENCOUNTER 2018-03-26 20:32 | Inpatient (IN) | payer MEDICAID ==
[2018-03-26 20:32] VITALS: BMI 29.5
[2018-03-26] MEDS ORDERED: Sodium Chloride 0.9% 1,000 ML IV ONE (21:23)
[2018-03-26] MEDS ORDERED: Sodium Chloride 0.9% 1,000 ML ONE (21:32)
[2018-03-26] MEDS ORDERED: Morphine 4 MG/ML VIAL ONE (21:33)
--- NOTE | 2018-03-26 21:37 | C.PDOC ---
History Of Present Illness 62yo female, recently diagnose with kidney stone and admitted to this hospital, comes to the ER for evaluation of left flank pain, radiating to her groin. She denies any hematuria, and offers no medical complaints. Time Seen by Provider: 03/26/18 21:10 Chief Complaint (Nursing): Back Pain History Per: Patient History/Exam Limitations: no limitations Onset/Duration Of Symptoms: Days Current Symptoms Are (Timing): Still Present Quality Of Discomfort: "Pain" Associated Symptoms: denies: Incontinence, New Weakness, New Numbness Past Medical History Reviewed: Historical Data, Nursing Documentation, Vital Signs Vital Signs: Last Vital Signs Temp 98.3 F 03/27/18 03:17 Pulse 78 03/27/18 03:17 Resp 18 03/27/18 03:17 BP 134/81 03/27/18 03:17 Pulse Ox 99 03/27/18 04:02 - Medical History PMH: Anxiety (NO MEDS AT PRESENT), Arthritis, Asthma, Colonic Polyps, Depression (NO MEDS AT PRESENT), Gastritis, Gall Bladder Disease, Hypercholesterolemia, Rheumatoid Arthritis Denies: Chronic Kidney Disease Surgical History: Cholecystectomy, Endoscopy - [facility] Procedures CLOSED ENDOSCOPIC BIOPSY OF LARGE INTESTINE (04/11/14) COLONOSCOPY (11/27/13) ESOPHAGOGASTRODUODENOSCOPY [EGD] W/CLOSED BIOPSY (04/23/14) INSERTION OF INFUSION DEV INTO SUP VENA CAVA, PERC APPROACH (03/14/18) ULTRASONOGRAPHY OF SUPERIOR VENA CAVA, GUIDANCE (03/14/18) Family History: States: No Known Family Hx - Social History Hx Alcohol Use: No Hx Substance Use: No - Immunization History Hx Tetanus Toxoid Vaccination: No Hx Influenza Vaccination: No Hx Pneumococcal Vaccination: No Review Of Systems Except As Marked, All Systems Reviewed And Found Negative. Constitutional: Negative for: Fever, Chills Gastrointestinal: Positive for: Other (left flank radiating to left groin pain) Genitourinary: Negative for: Dysuria Neurological: Negative for: Weakness, Numbness Physical Exam - Physical Exam Appears: Non-toxic, In Acute Distress Skin: Warm Head: Normacephalic Eye(s): bilateral: Normal Inspection Neck: Supple Chest: Symmetrical Cardiovascular: Rhythm Regular Respiratory: Normal Breath Sounds Gastrointestinal/Abdominal: Soft, No Tenderness, No Guarding, No Rebound Back: CVA Tenderness (left) Extremity: Normal ROM Neurological/Psych: Oriented x3 ED Course And Treatment - Laboratory Results Result Diagrams: 03/26/18 21:53 03/26/18 21:53 O2 Sat by Pulse Oximetry: 99 (RA) Pulse Ox Interpretation: Normal - CT Scan/US CT Abdomen/Pelvis Other Rad Studies (CT/US): Read By Radiologist, Radiology Report Reviewed CT/US Interpretation: FINDINGS: Cholecystectomy clips are present. There is suggestion of mild intrahepatic duct dilation likely secondary to cholecystectomy. There is a 1 cm hypoattenuating right hepatic lesion probable cyst. The spleen and pancreas appear grossly normal on this non-contrast study. There is an elongated 11 x 4 mm calculi in the lower pole collecting system of the left kidney. No. hydronephrosis. Pelvic phleboliths. Fluid and stool filled cecum is noted deep within the pelvis. Scattered diverticuli without diverticulitis. IMPRESSION: Lower pole left renal calculi without hydronephrosis. Progress Note: Labs and UA ordered. Patient given Morphine and IV Fluids. Medical Decision Making Medical Decision Makin Call placed to Dr. Louis Wisdom, pending call back [phone] 2nd call placed to Dr. Louis Wisdom via his answering service, pending call back [phone] 3rd call placed to Dr. Louis Wisdom via his answering service, pending call back Disposition Discussed With .: Cesar Beverly Doctor Will See Patient In The: Hospital Counseled Patient/Family Regarding: Diagnosis - Disposition Disposition: HOSPITALIZED Disposition Time: 05:15 Condition: STABLE Forms: [facility] (Indian) - POA Present On Arrival: None - Clinical Impression Clinical Impression: Renal colic on left side, Pyelonephritis - Bradibe Statement The provider has reviewed the documentation as recorded by the Ezra Blood Provider Attestation: All medical record entries made by the Ezra were at my direction and personally dictated by me. I have reviewed the chart and agree that the record accurately reflects my personal performance of the history, physical exam, medical decision making, and the department course for this patient. I have also personally directed, reviewed, and agree with the discharge instructions and disposition.
[2018-03-26 21:57] LABS: BASO % 0.3 % (0.0-2.0); EOS # 0.1 K/uL (0.0-0.7); EOS % 1.2 % (0.0-4.0); HEMOGLOBIN 14.8 g/dL (11.0-16.0); LYMPH # 2.6 K/uL (1.0-4.3); MEAN CELL VOLUME 91.8 fL (81.0-99.0); MEAN CORPUSCULAR HEMOGLOBIN 30.8 pg (27.0-31.0); MEAN CORPUSCULAR HGB CONC 33.6 g/dL (33.0-37.0); MEAN PLATELET VOLUME 7.9 fL (7.2-11.7); MONO # 0.7 K/uL (0.0-0.8); NEUT # 5.1 K/uL (1.8-7.0); NEUT % 59.5 % (50.0-75.0); NRBC % 0.1 % (0.0-2.0); RBC 4.8 Mil/uL (3.80-5.20); WHITE BLOOD COUNT 8.5 K/uL (4.8-10.8)
[2018-03-26 22:09] LABS: SQUAMOUS EPITHIAL 1 /hpf (0-5); URINE BILIRUBIN NEGATIVE (NEGATIVE); URINE BLOOD 3+ (NEGATIVE); URINE CLARITY Hazy (Clear); URINE COLOR Yellow (YELLOW); URINE GLUCOSE (UA) NORMAL (Normal); URINE LEUKOCYTE ESTERASE 1+ Leu/uL (Negative); URINE PROTEIN 1+ mg/dL (NEGATIVE); URINE UROBILINOGEN NORMAL mg/dL (0.2-1.0)
[2018-03-26 22:17] LABS: ALB/GLOB RATIO 1.3 (1.0-2.1); ALBUMIN 4.2 g/dL (3.5-5.0); CALCIUM 9.5 mg/dl (8.6-10.4); GFR AFRICAN-AMERICAN > 60; GFR NON-AFRICAN AMERICAN > 60; LIPASE 103 U/L (23-300)
[2018-03-26 22:20] LABS: ALT/SGPT 35 U/L (9-52); AST/SGOT 26 U/L (14-36); BLOOD UREA NITROGEN 13 mg/dL (7-17)
[2018-03-26] MEDS ORDERED: Ciprofloxacin 400mg/200ml D5W 400 MG/200 ML BAG IVPB STA (22:36)
[2018-03-26] MEDS ORDERED: Ciprofloxacin 400mg/200ml D5W 400 MG/200 ML BAG IVPB ONE (23:05)
[2018-03-27] MEDS ORDERED: Morphine 4 MG/ML VIAL ONE (01:06)
[2018-03-27] MEDS ORDERED: Albuterol-Ipratrop 3 mg / 0.5 (3 ml) UD INH PRN (05:13)
[2018-03-27] MEDS: Dextrose 5%/0.45% NS 1,000 ML IV SCH ×2 (05:57→17:44)
--- NOTE | 2018-03-27 08:21 | CP.PCM.PN ---
Subjective - Date & Time of Evaluation Date of Evaluation: 03/27/18 Time of Evaluation: 08:20 - Subjective Subjective: PGY2- Medicine progress note for Dr. Beverly Patient was seen and examined at bedside in no acute distress. Patient reports having pain in her left flank and back and states her pain is an 8/10. She says she went to Dr. Howie Parham's office on Tuesday because her pain was so severe and was told to go to the ER. She says she tried to wait to see if the pain would improve, but it persisted and that is when she came to the ER on Tuesday. She denies hematuria today, but noted blood in urine over the weekend. She denies pain and burning with urination. Patient denies chest pain, dyspnea, palpitations, nausea, vomiting, fevers, headaches, abdominal pain, diarrhea, constipation, and blood in stool. Objective - Vital Signs/Intake and Output Vital Signs (last 24 hours): Temp Pulse Resp BP Pulse Ox 98.0 F 78 20 139/80 97 03/27/18 07:00 03/27/18 07:00 03/27/18 07:00 03/27/18 07:00 03/27/18 07:00 - Medications Medications: Current Medications Albuterol/Ipratropium (Duoneb 3 Mg/0.5 Mg (3 Ml) Ud) 3 ml INH RQ4 PRN PRN Reason: sob Dextrose/Sodium Chloride (Dextrose 5%/0.45% Ns 1000 Ml) 1,000 mls @ 100 mls/hr IV .Q10H [facility] Last Admin: 03/27/18 05:57 Dose: 100 mls/hr Morphine Sulfate (Morphine) 2 mg IVP Q4 PRN PRN Reason: Pain, moderate (4-7) Last Admin: 03/27/18 06:16 Dose: 2 mg Tamsulosin HCl (Flomax) 0.4 mg PO DAILY [facility] Last Admin: 03/26/18 21:35 Dose: 0.4 mg - Labs Labs: 03/26/18 21:53 03/26/18 21:53 - Constitutional Appears: No Acute Distress - Head Exam Head Exam: ATRAUMATIC, NORMAL INSPECTION - Eye Exam Eye Exam: EOMI, Normal appearance - ENT Exam ENT Exam: Mucous Membranes Moist - Respiratory Exam Respiratory Exam: Decreased Breath Sounds, NORMAL BREATHING PATTERN. absent: Rales, Wheezes, Respiratory Distress - Cardiovascular Exam Cardiovascular Exam: REGULAR RHYTHM, +S1, +S2 - GI/Abdominal Exam GI & Abdominal Exam: Soft, Normal Bowel Sounds. absent: Distended, Firm, Tenderness - Back Exam Back Exam: CVA tenderness (L), tenderness (left flank). absent: CVA tenderness (R), rash noted - Neurological Exam Neurological Exam: Alert, Awake, Oriented x3 - Psychiatric Exam Psychiatric exam: Normal Affect, Normal Mood - Skin Skin Exam: Dry, Intact, Normal Color, Warm Assessment and Plan - Assessment and Plan (Free Text) Plan: Nephrolithiasis -Abdomen/pelvis CT (03/27): lower pole left renal calculi w/o hydronephrosis -Urology (Dr. Howie Castellanos) consulted. Help appreciated. -Morphine 2mg IVP Q4 PRN for pain management. Pyelonephritis -Urine cultures during previous admission: + Proteus Mirabilis -Patient has right PICC line (placed on 03/15) for a total of 14 days of antibiotics. Patient was to continue Invanz 1g IV for 12 doses. -Patient had 10th dose of Invanz 1gm IV on 03/26/18 prior to admission. -ID consulted, Dr. Hitchcock; help appreciated -Merrem 500mg IV Q8h for a total of 10 days (started on 03/27/[address] Hitchcock; Invanz is not available inpatient) History of Pulmonary Fibrosis -Continue Duonebs Q4h prn -Continue home medication Ventolin prn Hx of SLE -Continue home medication Plaquinil 200mg PO BID History of Hypercholesterolemia -Continue Crestor 5mg PO HS [facility] PPX -SCDs -NPO per Dr. Howie Castellanos
--- NOTE | 2018-03-27 08:43 | RAD ---
HISTORY: COMPARISON: No prior. TECHNIQUE: Chest PA and lateral FINDINGS: LINES AND TUBES: The right PICC line terminates in the SVC. LUNG AND PLEURA: There is pulmonary hyperinflation. No focal consolidation. No pleural effusion or pneumothorax. HEART AND MEDIASTINUM: The heart is not enlarged. The hilar and mediastinal contours are within normal limits. SKELETAL STRUCTURES: The bony structures are within normal limits for the patient's age. VISUALIZED UPPER ABDOMEN: Normal. OTHER FINDINGS: None. IMPRESSION: Right PICC line terminates in the SVC. No active pulmonary disease. COPD.
[2018-03-27 10:29] LABS: BASO % 0.4 % (0.0-2.0); EOS % 0.7 % (0.0-4.0); HEMOGLOBIN 13.9 g/dL (11.0-16.0); LYMPH # 1.5 K/uL (1.0-4.3); LYMPH % 28.5 % (20.0-40.0); MEAN CELL VOLUME 92.5 fL (81.0-99.0); MEAN CORPUSCULAR HGB CONC 33.5 g/dL (33.0-37.0); MEAN PLATELET VOLUME 8.1 fL (7.2-11.7); MONO # 0.4 K/uL (0.0-0.8); MONO % 7.6 % (0.0-10.0); NEUT # 3.3 K/uL (1.8-7.0); NEUT % 62.8 % (50.0-75.0); RBC 4.48 Mil/uL (3.80-5.20); RED CELL DISTRIBUTION WIDTH 14.5 % (11.5-14.5); WHITE BLOOD COUNT 5.3 K/uL (4.8-10.8)
[2018-03-27] MEDS ORDERED: Albuterol HFA 90 mcg/actuation (8 g) INH PRN (10:48)
[2018-03-27 10:59] LABS: ALB/GLOB RATIO 1.2 (1.0-2.1); ALBUMIN 3.6 g/dL (3.5-5.0); ALT/SGPT 803 U/L (9-52); AST/SGOT 1400 U/L (14-36); BLOOD UREA NITROGEN 8 mg/dL (7-17); CALCIUM 8.8 mg/dl (8.6-10.4); GFR AFRICAN-AMERICAN > 60; GFR NON-AFRICAN AMERICAN > 60
--- NOTE | 2018-03-27 12:42 | CT ---
Date of service: 03/27/2018 PROCEDURE: CT Abdomen and Pelvis without intravenous contrast HISTORY: left flank pain COMPARISON: CT scan of the abdomen and pelvis dated 03/11/2018. TECHNIQUE: Contiguous images were obtained from the domes of the diaphragms to the upper thighs without the administration of intravenous contrast. Oral contrast was not administered. Radiation dose: Total exam DLP = 571.6 mGy-cm. This CT exam was performed using one or more of the following dose reduction techniques: Automated exposure control, adjustment of the mA and/or kV according to patient size, and/or use of iterative reconstruction technique. FINDINGS: LOWER THORAX: Unremarkable. LIVER: Stable 1.5 cm right hepatic lobe subcapsular cyst. No gross lesion or ductal dilatation. GALLBLADDER AND BILE DUCTS: Prior cholecystectomy with surgical clips in place. Stable dilatation of the common bile duct measuring 11 mm. PANCREAS: Unremarkable. No gross lesion or ductal dilatation. SPLEEN: Unremarkable. ADRENALS: Unremarkable. No mass. KIDNEYS AND URETERS: 1.1 x 0.4 cm left mid/ lower pole nonobstructive calculus. No hydronephrosis. No solid mass. VASCULATURE: Unremarkable. No aortic aneurysm. BOWEL: Colonic diverticulosis. No obstruction. No gross mural thickening. APPENDIX: Unremarkable. Normal appendix. PERITONEUM: Unremarkable. No free fluid. No free air. LYMPH NODES: Unremarkable. No enlarged lymph nodes. BLADDER: Unremarkable. REPRODUCTIVE: Unremarkable. BONES: No acute fracture. OTHER FINDINGS: None. IMPRESSION: 1.1 x 0.4 cm left mid/ lower pole nonobstructive calculus. No obstructive uropathy.
--- NOTE | 2018-03-27 12:55 | CP.PCM.CON ---
History of Present Illness - History of Present Illness History of Present Illness: 62yo female, recently diagnose with kidney stone and admitted to this hospital, comes to the ER for evaluation of left flank pain, radiating to her groin. She denies any hematuria, and offers no medical complaints. ON IV Invanz for ESBL pyelo switched to Merrem for lithotrypsy - Medical History PMH: Anxiety (NO MEDS AT PRESENT), Arthritis, Asthma, Colonic Polyps, Depression (NO MEDS AT PRESENT), Gastritis, Gall Bladder Disease, Hypercholesterolemia, Rheumatoid Arthritis Denies: Chronic Kidney Disease Surgical History: Cholecystectomy, Endoscopy - [facility] Procedures CLOSED ENDOSCOPIC BIOPSY OF LARGE INTESTINE (04/11/14) COLONOSCOPY (11/27/13) ESOPHAGOGASTRODUODENOSCOPY [EGD] W/CLOSED BIOPSY (04/23/14) INSERTION OF INFUSION DEV INTO SUP VENA CAVA, PERC APPROACH (03/14/18) ULTRASONOGRAPHY OF SUPERIOR VENA CAVA, GUIDANCE (03/14/18) Review of Systems - Review of Systems All systems: reviewed and no additional remarkable complaints except - Constitutional Constitutional: As Per HPI - EENT Eyes: absent: As Per HPI, Blind Spots, Blurred Vision, Change in Vision, Decreased Night Vision, Diplopia, Discharge, Dry Eye, Exophthalmos, Floaters, Irritation, Itchy Eyes, Loss of Peripheral Vision, Pain, Photophobia, Requires Corrective Lenses, Sees Flashes, Spots in Vision, Tunnel Vision, Other Visual Disturbances, Loss of Vision, Other Ears: absent: As Per HPI, Decreased Hearing, Ear Discharge, Ear Pain, Tinnitus, Abnormal Hearing, Disequilibrium, Dizziness, Other Nose/Mouth/Throat: absent: As Per HPI, Epistaxis, Nasal Congestion, Nasal Discharge, Nasal Obstruction, Nasal Trauma, Nose Pain, Post Nasal Drip, Sinus Pain, Sinus Pressure, Bleeding Gums, Change in Voice, Dental Pain, Dry Mouth, Dysphagia, Halitosis, Hoarsness, Lip Swelling, Mouth Lesions, Mouth Pain, Odynophagia, Sore Throat, Throat Swelling, Tongue Swelling, Facial Pain, Neck Pain, Neck Mass, Other - Breasts Breasts: absent: As Per HPI, Change in Shape, Mass, Pain, Nipple Discharge, Nipple Inversion, Skin Changes, Swelling, Other - Cardiovascular Cardiovascular: absent: As Per HPI, Acrocyanosis, Chest Pain, Chest Pain at Rest , Chest Pain with Activity, Claudication, Diaphoresis, Dyspnea, Dyspnea on Exertion, Edema, Irregular Heart Rhythm, Pain Radiating to Arm/Neck/Jaw, Leg Edema, Leg Ulcers, Lightheadedness, Orthopnea, Palpitations, Paroxysmal Nocturnal Dyspnea, Pedal Edema, Radiating Pain, Rapid Heart Rate, Slow Heart Rate, Syncope, Other - Respiratory Respiratory: absent: As Per HPI, Cough, Dyspnea, Hemoptysis, Dyspnea on Exertion , Wheezing, Snoring, Stridor, Pain on Inspiration, Chest Congestion, Excessive Mucous Production, Change in Mucous Color, Pain with Coughing, Other - Gastrointestinal Gastrointestinal: absent: As Per HPI, Abdominal Pain, Belching, Bloating, Change in Bowel Habits, Change in Stool Character, Coffee Ground Emesis, Constipation, Cramping, Diarrhea, Dyspepsia, Dysphagia, Early Satiety, Excessive Flatus, Fecal Incontinence, Heartburn, Hematemesis, Hematochezia, Loose Stools, Melena, Nausea, Odynophagia, Temesmus, Vomiting, Other - Genitourinary Genitourinary: As Per HPI - Reproductive: Female Reproductive:Female: absent: As Per HPI, Amenorrhea, Amenorrhea/ Control, Currently Menstual, Cycle <21 Days, Cycle >35 Days, Cycle Variable, Menses 1-7 Days, Menses >/= 8 Days, Menses Variable, Cycle > 4 Weeks Between, No Menses for 6 Months, Heavy Menses, Light Menses, Normal Menses, Spotting Between Cycles , S/P Hysterectomy, Menopausal, Post Menopausal, Premenarche, Abnormal Vaginal Bleeding, Dysmenorrhea, Dyspareunia, Genital Lesions, Genital Pruritis, Pelvic Pain, Prolapse Symptoms, Sexual Dysfunction, Vaginal Discharge, Vaginal Dryness , Vaginal Odor, Vaginal Pruritis, Other - Menstruation Menstruation: absent: As Per HPI, Amenorrhea, Amenorrhea/ Control, Currently Menstual, Cycle <21 Days, Cycle >35 Days, Cycle Variable, Menses 1-7 Days, Menses >/= 8 Days, Menses Variable, Cycle > 4 Weeks Between, No Menses for 6 Months, Heavy Menses, Light Menses, Normal Menses, Spotting Between Cycles , S/P Hysterectomy, Menopausal, Post Menopausal, Premenarche, Abnormal Vaginal Bleeding, Dysmenorrhea, Other - Integumentary Integumentary: absent: As Per HPI, Acne, Alopecia, Bleeding Lesions, Change in Hair, Change in Nails, Change in Pigmentation, Changing Lesions, Dry Skin, Erythema, Furuncle, Hirsutism, Lesions, New Lesions, Non-Healing Lesions, Photosensitivity, Pruritus, Rash, Skin Pain, Skin Ulcer, Sores, Striae, Swelling , Unusual Bruising, Wounds, Jaundice, Other - Neurological Neurological: absent: As Per HPI, Abnormal Gait, Abnormal Hearing, Abnormal Movements, Abnormal Speech, Behavioral Changes, Burning Sensations, Confusion, Convulsions, Disequilibrium, Dizziness, Numbness, Focal Weakness, Frequent Falls , Headaches, Lack of Coordination, Loss of Vision, Memory Loss, Paresthesias, Radicular Pain, Restless Legs, Sensory Deficit, Syncope, Tingling, Tremor, Vertigo, Weakness, Other Visual Disturbances, Other Past Patient History - Past Medical History & Family History Past Medical History?: Yes - Past Social History Smoking Status: Light Smoker < 10 Cigarettes Daily - CARDIAC Hx Cardiac Disorders: Yes Hx Hypercholesterolemia: Yes - PULMONARY Hx Respiratory Disorders: Yes Hx Asthma: Yes - NEUROLOGICAL Hx Neurological Disorder: No - HEENT Hx HEENT Problems: No - RENAL Hx Chronic Kidney Disease: No - ENDOCRINE/METABOLIC Hx Endocrine Disorders: Yes Hx Systemic Lupus Erythematosus: Yes - HEMATOLOGICAL/ONCOLOGICAL Hx Blood Disorders: No - INTEGUMENTARY Hx Dermatological Problems: No - MUSCULOSKELETAL/RHEUMATOLOGICAL Hx Arthritis: Yes Hx Falls: No Hx Rheumatoid Arthritis: Yes - GASTROINTESTINAL Hx Gastrointestinal Disorders: Yes Hx Gall Bladder Disease: Yes Hx Gastritis: Yes - GENITOURINARY/GYNECOLOGICAL Hx Genitourinary Disorders: No - PSYCHIATRIC Hx Psychophysiologic Disorder: Yes Hx Anxiety: Yes - SURGICAL HISTORY Hx Surgeries: Yes Hx Cholecystectomy: Yes - ANESTHESIA Hx Anesthesia: Yes Hx Anesthesia Reactions: No Hx Malignant Hyperthermia: No Has any member of the family had a problem w/ anesthesia?: No Meds Allergies/Adverse Reactions: Allergies Allergy/AdvReac Type Severity Reaction Status Date / Time No Known Allergies Allergy Verified 03/26/18 21:03 - Medications Medications: Current Medications Albuterol (Ventolin Hfa 90 Mcg/Actuation (8 G)) 2 puff INH RQ4 PRN PRN Reason: Wheezing Albuterol/Ipratropium (Duoneb 3 Mg/0.5 Mg (3 Ml) Ud) 3 ml INH RQ4 PRN PRN Reason: sob Hydroxychloroquine Sulfate (Plaquenil) 200 mg PO BID BRENDAN PRN Reason: Protocol Dextrose/Sodium Chloride (Dextrose 5%/0.45% Ns 1000 Ml) 1,000 mls @ 100 mls/hr IV .Q10H BRENDAN Last Admin: 03/27/18 05:57 Dose: 100 mls/hr Meropenem 500 mg/ Sodium (Chloride) 100 mls @ 100 mls/hr IVPB Q8H BRENDAN PRN Reason: Protocol Stop: 04/06/18 13:01 Morphine Sulfate (Morphine) 2 mg IVP Q4 PRN PRN Reason: Pain, moderate (4-7) Last Admin: 03/27/18 10:22 Dose: 2 mg Rosuvastatin Calcium (Crestor) 5 mg PO HS BRENDAN Tamsulosin HCl (Flomax) 0.4 mg PO DAILY [facility] Last Admin: 03/27/18 10:22 Dose: 0.4 mg Physical Exam - Constitutional Appears: No Acute Distress, Chronically Ill - Head Exam Head Exam: ATRAUMATIC, NORMOCEPHALIC - Eye Exam Eye Exam: absent: Scleral icterus - ENT Exam ENT Exam: Mucous Membranes Dry, Normal External Ear Exam - Neck Exam Neck exam: Negative for: Lymphadenopathy - Respiratory Exam Respiratory Exam: Decreased Breath Sounds, Clear to Auscultation Bilateral - Cardiovascular Exam Cardiovascular Exam: REGULAR RHYTHM, +S1, +S2 - GI/Abdominal Exam GI & Abdominal Exam: Diminished Bowel Sounds, Soft. absent: Tenderness - Rectal Exam Rectal Exam: Deferred - Exam Exam: NORMAL INSPECTION - Extremities Exam Extremities exam: Positive for: pedal pulses present. Negative for: calf tenderness, pedal edema, tenderness - Back Exam Back exam: CVA tenderness (L). absent: CVA tenderness (R), paraspinal tenderness - Neurological Exam Neurological exam: Alert, CN II-XII Intact, Oriented x3, Reflexes Normal - Psychiatric Exam Psychiatric exam: Normal Mood - Skin Skin Exam: Petechiae Results - Vital Signs Recent Vital Signs: Last Vital Signs Temp 98.0 F 03/27/18 07:00 Pulse 78 03/27/18 07:00 Resp 20 03/27/18 07:00 BP 139/80 03/27/18 07:00 Pulse Ox 97 03/27/18 07:00 - Labs Result Diagrams: 03/27/18 10:24 03/27/18 10:24 Labs: Laboratory Results - last 24 hr 03/26/18 03/26/18 03/26/18 21:53 21:53 21:53 WBC 8.5 RBC 4.80 Hgb 14.8 Hct 44.0 MCV 91.8 MCH 30.8 MCHC 33.6 RDW 14.0 Plt Count 310 MPV 7.9 Neut % (Auto) 59.5 Lymph % (Auto) 31.0 [place] % (Auto) 8.0 Eos % (Auto) 1.2 Baso % (Auto) 0.3 Neut # (Auto) 5.1 Lymph # (Auto) 2.6 [place] # (Auto) 0.7 Eos # (Auto) 0.1 Baso # (Auto) 0.0 Sodium 142 Potassium 4.1 Chloride 106 Carbon Dioxide 27 Anion Gap 13 BUN 13 Creatinine 0.6 L Est GFR ( Amer) > 60 Est GFR (Non-Af Amer) > 60 Random Glucose 98 Calcium 9.5 Phosphorus Magnesium Total Bilirubin 0.5 AST 26 ALT 35 Alkaline Phosphatase 88 Total Protein 7.5 Albumin 4.2 Globulin 3.3 Albumin/Globulin Ratio 1.3 Lipase 103 Urine Color Yellow Urine Clarity Hazy Urine pH 6.0 Ur Specific [place] 1.018 Urine Protein 1+ H Urine Glucose (UA) Normal Urine Ketones Negative Urine Blood 3+ H Urine Nitrate Negative Urine Bilirubin Negative Urine Urobilinogen Normal Ur Leukocyte Esterase 1+ H Urine WBC (Auto) 60 H Urine RBC (Auto) 607 H Ur Squamous Epith Cells 1 03/27/18 03/27/18 10:24 10:24 WBC 5.3 RBC 4.48 Hgb 13.9 Hct 41.4 MCV 92.5 MCH 31.0 MCHC 33.5 RDW 14.5 Plt Count 254 MPV 8.1 Neut % (Auto) 62.8 Lymph % (Auto) 28.5 [place] % (Auto) 7.6 Eos % (Auto) 0.7 Baso % (Auto) 0.4 Neut # (Auto) 3.3 Lymph # (Auto) 1.5 [place] # (Auto) 0.4 Eos # (Auto) 0.0 Baso # (Auto) 0.0 Sodium 142 Potassium 3.8 Chloride 108 H Carbon Dioxide 26 Anion Gap 12 BUN 8 Creatinine 0.5 L Est GFR ( Amer) > 60 Est GFR (Non-Af Amer) > 60 Random Glucose 94 Calcium 8.8 Phosphorus 2.9 Magnesium 2.0 Total Bilirubin 0.7 AST 1400 H ALT 803 H D Alkaline Phosphatase 162 H D Total Protein 6.7 Albumin 3.6 Globulin 3.0 Albumin/Globulin Ratio 1.2 Lipase Urine Color Urine Clarity Urine pH Ur Specific [place] Urine Protein Urine Glucose (UA) Urine Ketones Urine Blood Urine Nitrate Urine Bilirubin Urine Urobilinogen Ur Leukocyte Esterase Urine WBC (Auto) Urine RBC (Auto) Ur Squamous Epith Cells Assessment & Plan (1) Pyelonephritis Status: Acute (2) Renal colic on left side Status: Acute (3) Pyelonephritis, acute Status: Acute - Assessment and Plan (Free Text) Assessment: await repeat cultures cont merrem
[2018-03-27] MEDS: Meropenem 500 MG in Sodium Chloride 0.9% 100 ML IVPB SCH ×2 (13:25→21:28)
--- NOTE | 2018-03-27 16:31 | PCM.URO ---
Urology Progress Note - Objective Lab Studies: Reviewed (pt for cystoscopy tomorrow at 1 pm clear liquid breakfast then npo) Lab Results Last 24 Hours: Laboratory Results - last 24 hr 03/26/18 03/26/18 03/26/18 21:53 21:53 21:53 WBC 8.5 RBC 4.80 Hgb 14.8 Hct 44.0 MCV 91.8 MCH 30.8 MCHC 33.6 RDW 14.0 Plt Count 310 MPV 7.9 Neut % (Auto) 59.5 Lymph % (Auto) 31.0 [place] % (Auto) 8.0 Eos % (Auto) 1.2 Baso % (Auto) 0.3 Neut # (Auto) 5.1 Lymph # (Auto) 2.6 [place] # (Auto) 0.7 Eos # (Auto) 0.1 Baso # (Auto) 0.0 Sodium 142 Potassium 4.1 Chloride 106 Carbon Dioxide 27 Anion Gap 13 BUN 13 Creatinine 0.6 L Est GFR ( Amer) > 60 Est GFR (Non-Af Amer) > 60 Random Glucose 98 Calcium 9.5 Phosphorus Magnesium Total Bilirubin 0.5 AST 26 ALT 35 Alkaline Phosphatase 88 Total Protein 7.5 Albumin 4.2 Globulin 3.3 Albumin/Globulin Ratio 1.3 Lipase 103 Urine Color Yellow Urine Clarity Hazy Urine pH 6.0 Ur Specific [place] 1.018 Urine Protein 1+ H Urine Glucose (UA) Normal Urine Ketones Negative Urine Blood 3+ H Urine Nitrate Negative Urine Bilirubin Negative Urine Urobilinogen Normal Ur Leukocyte Esterase 1+ H Urine WBC (Auto) 60 H Urine RBC (Auto) 607 H Ur Squamous Epith Cells 1 03/27/18 03/27/18 10:24 10:24 WBC 5.3 RBC 4.48 Hgb 13.9 Hct 41.4 MCV 92.5 MCH 31.0 MCHC 33.5 RDW 14.5 Plt Count 254 MPV 8.1 Neut % (Auto) 62.8 Lymph % (Auto) 28.5 [place] % (Auto) 7.6 Eos % (Auto) 0.7 Baso % (Auto) 0.4 Neut # (Auto) 3.3 Lymph # (Auto) 1.5 [place] # (Auto) 0.4 Eos # (Auto) 0.0 Baso # (Auto) 0.0 Sodium 142 Potassium 3.8 Chloride 108 H Carbon Dioxide 26 Anion Gap 12 BUN 8 Creatinine 0.5 L Est GFR ( Amer) > 60 Est GFR (Non-Af Amer) > 60 Random Glucose 94 Calcium 8.8 Phosphorus 2.9 Magnesium 2.0 Total Bilirubin 0.7 AST 1400 H ALT 803 H D Alkaline Phosphatase 162 H D Total Protein 6.7 Albumin 3.6 Globulin 3.0 Albumin/Globulin Ratio 1.2 Lipase Urine Color Urine Clarity Urine pH Ur Specific [place] Urine Protein Urine Glucose (UA) Urine Ketones Urine Blood Urine Nitrate Urine Bilirubin Urine Urobilinogen Ur Leukocyte Esterase Urine WBC (Auto) Urine RBC (Auto) Ur Squamous Epith Cells Intake & Output: Intake & Output 03/26/18 03/27/18 03/27/18 18:59 06:59 18:59 Intake Total 900 Balance 900 Weight 150 lb Intake: Intake, IV Amount 900 Right Upper arm 900 Other: # Voids Urine, Voided 1 Vital Signs: Vital Signs - 24 hr 03/26/18 03/27/18 03/27/18 20:56 03:17 05:16 Temperature 98.9 F 98.3 F Pulse Rate 99 H 78 Respiratory 16 18 Rate Blood Pressure 109/75 134/81 O2 Sat by Pulse 99 98 99 Oximetry 03/27/18 03/27/18 03/27/18 06:20 06:46 07:00 Temperature 98 F 97.6 F 98.0 F Pulse Rate 71 69 78 Respiratory 18 20 20 Rate Blood Pressure 131/83 114/73 139/80 O2 Sat by Pulse 97 97 97 Oximetry
[2018-03-28] MEDS: Dextrose 5%/0.45% NS 1,000 ML IV SCH ×4 (01:15→20:58)
[2018-03-28] MEDS: Meropenem 500 MG in Sodium Chloride 0.9% 100 ML IVPB SCH ×3 (05:40→21:01)
[2018-03-28 06:16] LABS: BASO % 0.7 % (0.0-2.0); EOS # 0.1 K/uL (0.0-0.7); EOS % 2.2 % (0.0-4.0); HEMOGLOBIN 14.3 g/dL (11.0-16.0); LYMPH # 1.8 K/uL (1.0-4.3); LYMPH % 33.9 % (20.0-40.0); MEAN CELL VOLUME 92.8 fL (81.0-99.0); MEAN CORPUSCULAR HGB CONC 33.4 g/dL (33.0-37.0); MEAN PLATELET VOLUME 8.2 fL (7.2-11.7); MONO # 0.4 K/uL (0.0-0.8); MONO % 8.1 % (0.0-10.0); NEUT % 55.1 % (50.0-75.0); NRBC % 0.1 % (0.0-2.0); RBC 4.62 Mil/uL (3.80-5.20); RED CELL DISTRIBUTION WIDTH 14.1 % (11.5-14.5); WHITE BLOOD COUNT 5.4 K/uL (4.8-10.8)
[2018-03-28 06:43] LABS: INR 1.2; PROTHROMBIN TIME 12.6 SECONDS (9.7-12.2)
[2018-03-28 07:01] LABS: ALB/GLOB RATIO 1.3 (1.0-2.1); ALBUMIN 3.9 g/dL (3.5-5.0); ALT/SGPT 978 U/L (9-52); BLOOD UREA NITROGEN 12 mg/dL (7-17); CALCIUM 9.1 mg/dl (8.6-10.4); GFR AFRICAN-AMERICAN > 60; GFR NON-AFRICAN AMERICAN > 60
[2018-03-28 07:11] LABS: AST/SGOT 820 U/L (14-36)
--- NOTE | 2018-03-28 07:42 | CP.PCM.PN ---
Subjective - Date & Time of Evaluation Date of Evaluation: 03/28/18 Time of Evaluation: 07:36 - Subjective Subjective: PGY2- Medicine progress note for Dr. Beverly Patient was seen and examined at bedside in no acute distress. Patient states she still has left sided flank pain that has neither improved nor worsened. She denies chest pain, palpitations, dyspnea, abdominal pain, dysuria, hematuria, diarrhea, constipation, leg pain and leg swelling. Objective - Vital Signs/Intake and Output Vital Signs (last 24 hours): Temp Pulse Resp BP Pulse Ox 97.6 F 75 20 120/79 95 03/28/18 00:13 03/28/18 00:13 03/28/18 00:13 03/28/18 00:13 03/28/18 00:13 Intake and Output: 03/28/18 03/28/18 06:59 18:59 Intake Total 1900 Balance 1900 - Medications Medications: Current Medications Albuterol (Ventolin Hfa 90 Mcg/Actuation (8 G)) 2 puff INH RQ4 PRN PRN Reason: Wheezing Albuterol/Ipratropium (Duoneb 3 Mg/0.5 Mg (3 Ml) Ud) 3 ml INH RQ4 PRN PRN Reason: sob Hydroxychloroquine Sulfate (Plaquenil) 200 mg PO BID [facility]AN PRN Reason: Protocol Last Admin: 03/27/18 17:14 Dose: 200 mg Dextrose/Sodium Chloride (Dextrose 5%/0.45% Ns 1000 Ml) 1,000 mls @ 100 mls/hr IV .Q10H [facility] Last Admin: 03/28/18 05:57 Dose: 100 mls/hr Meropenem 500 mg/ Sodium (Chloride) 100 mls @ 100 mls/hr IVPB Q8H [facility]ENDAN PRN Reason: Protocol Stop: 04/06/18 13:01 Last Admin: 03/28/18 05:40 Dose: 100 mls/hr Morphine Sulfate (Morphine) 2 mg IVP Q4 PRN PRN Reason: Pain, moderate (4-7) Last Admin: 03/28/18 05:51 Dose: 2 mg Pneumococcal Polyvalent Vaccine (Pneumovax 23 Vaccine) 0.5 ml IM .ONCE ONE Stop: 03/28/18 10:01 Rosuvastatin Calcium (Crestor) 5 mg PO [facility] Last Admin: 03/27/18 21:28 Dose: 5 mg Tamsulosin HCl (Flomax) 0.4 mg PO DAILY [facility] Last Admin: 03/27/18 10:22 Dose: 0.4 mg - Labs Labs: 03/28/18 06:10 03/28/18 06:10 PT 12.6 SECONDS (9.7-12.2) H 03/28/18 06:10 INR 1.2 03/28/18 06:10 APTT 40 SECONDS (21-34) H 03/28/18 06:10 - Additional Findings Additional findings: - Constitutional Appears: No Acute Distress - Head Exam Head Exam: ATRAUMATIC, NORMAL INSPECTION - Eye Exam Eye Exam: EOMI, Normal appearance - ENT Exam ENT Exam: Mucous Membranes Moist - Respiratory Exam Respiratory Exam: Decreased Breath Sounds, NORMAL BREATHING PATTERN. absent: Rales, Wheezes, Respiratory Distress - Cardiovascular Exam Cardiovascular Exam: REGULAR RHYTHM, +S1, +S2 - GI/Abdominal Exam GI & Abdominal Exam: Soft, Normal Bowel Sounds. absent: Distended, Firm, Tenderness - Back Exam Back Exam: CVA tenderness (L), tenderness (left flank). absent: CVA tenderness (R), rash noted - Neurological Exam Neurological Exam: Alert, Awake, Oriented x3 - Psychiatric Exam Psychiatric exam: Normal Affect, Normal Mood - Skin Skin Exam: Dry, Intact, Normal Color, Warm Assessment and Plan - Assessment and Plan (Free Text) Plan: Nephrolithiasis -Abdomen/pelvis CT (03/27): lower pole left renal calculi w/o hydronephrosis -Urology (Dr. Howie Castellanos) consulted. Help appreciated. -Morphine 2mg IVP Q4 PRN for pain management. Pyelonephritis -Urine cultures during previous admission: + Proteus Mirabilis -Patient has right PICC line (placed on 03/15) for a total of 14 days of antibiotics. Patient was to continue Invanz 1g IV for 12 doses. -Patient had 10th dose of Invanz 1gm IV on 03/26/18 prior to admission. -ID consulted, Dr. Hitchcock; help appreciated -Merrem 500mg IV Q8h for a total of 10 days (started on 03/27/[address] Hitchcock; Invanz is not available inpatient) Elevated transaminases -Possibly due to Cipro (given on 03/26/18) -Discontinued Crestor and Flomax -Abdominal US ordered: f/u -Continue to monitor History of Pulmonary Fibrosis -Continue Duonebs Q4h prn -Continue home medication Ventolin prn Hx of SLE -Continue home medication Plaquinil 200mg PO BID History of Hypercholesterolemia -Discontinued Crestor 5mg PO HS BRENDAN due to elevated transaminases PPX -SCDs -NPO per Dr. Howie Castellanos for scheduled procedure on 03/28/18
--- NOTE | 2018-03-28 08:56 | HP ---
HISTORY OF PRESENT ILLNESS: This is a 62-year-old female with a history of lupus, Kidney stone, UTI. Chief complaint back pain, neck pain. The patient was unable to make visit to the urologist. . The patient came to the ER and advised admission. The patient is a smoker. PHYSICAL EXAMINATION: GENERAL: The patient is awake, alert, oriented. HEENT: Within normal limits. NECK: Supple. CHEST: Symmetrical. HEART: Regular. ABDOMEN: Soft. EXTREMITIES: No edema. ASSESSMENT AND PLAN: The patient with renal colic left side, pyelonephritis. Patient bed rest, Urology consult. Cesar Beverly MD
[2018-03-28] MEDS ORDERED: Enoxaparin 40 mg Syringe SC SCH (10:00)
[2018-03-28] MEDS ORDERED: Pneumococcal 23-Valent Vaccine IM ONE (10:00)
[2018-03-28] MEDS ORDERED: Iohexol 240 (50 ml) ONE (12:27)
[2018-03-28] MEDS ORDERED: cefTRIAXone IV 1 gm in Dextros 0 ML IVPB ONE (12:27)
[2018-03-28] MEDS ORDERED: Midazolam 2 MG/2 ML VIAL ONE (13:14)
[2018-03-28] MEDS ORDERED: Propofol 10 mg/ml Inj (20 ML) ONE (13:15)
[2018-03-28] MEDS ORDERED: HYDROmorphone 0.5 mg/0.5 ml ISec IVP PRN (13:59)
[2018-03-28] MEDS ORDERED: HYDROmorphone 0.5 mg/0.5 ml ISec ONE (14:02)
--- NOTE | 2018-03-28 14:17 | CARD ---
APPROVED REPORT Date of service: 03/27/2018 EKG Measurement Heart [id number] <Conclusion> Normal sinus rhythm Normal ECG
[2018-03-28 16:30] VITALS: RESP 20
[2018-03-29] MEDS: Lactated Ringer's 1,000 ML IV SCH ×2 (00:23→10:00)
--- NOTE | 2018-03-29 01:06 | CON ---
Copied To: Reilly Castellanos MD Attending MD: Reilly Castellanos MD DATE: 03/27/2018 REASON FOR CONSULTATION: Renal colic. HISTORY OF PRESENT ILLNESS: Mrs. Reaves is a lady who is 62 years old. She came to the office on Tuesday with discomfort. Apparently, she has been in the hospital previously. We discussed the options. She apparently had a stone. I then recommended she visit the ER. She apparently went to the ER this morning at 7:30 and was found to have a stone. It does not look by the films that there is an obstructing stone. It looks like there is a solitary very large stone in the left lower pole of the kidney. See the report on the chart. PAST MEDICAL HISTORY: As listed on the chart. PAST SURGICAL HISTORY: As listed on the chart. PATIENT OF: Cesar Beverly MD REVIEW OF SYSTEMS: Listed above is noncontributory. PHYSICAL EXAMINATION: GENERAL: She is a 62-year-old lady resting comfortably right now on the stretcher. VITAL SIGNS: Within normal limits, included in the chart. PELVIC: She has no pelvic or rectal masses. Remainder of physical exam is essentially otherwise unremarkable. CT scan is noted. The stone is noted. No hydronephrosis noted. Labs are noted in the chart. DIAGNOSIS: Urolithiasis, hematuria, and renal colic. ASSESSMENT AND PLAN: I discussed with the patient at this point the various options. We are going to plan for a stent insertion. We just discussed the timing with her and Dr. Beverly, and then further plans will follow. Thank you for the Urology consult. ADDENDUM: Subsequently after discussing the timing, the schedule, the OR schedule, my schedule, we are unable to do it today, but we are going to plan to see the patient now and do it for 03/28/2018. I explained this all to the patient in detail. Reilly Castellanos MD
--- NOTE | 2018-03-29 01:50 | OP ---
Copied To: Reilly Castellanos MD Attending MD: Reilly Castellanos MD PROCEDURE DATE: 03/28/2018 PREOPERATIVE DIAGNOSES: Urolithiasis, hematuria, renal colic. POSTOPERATIVE DIAGNOSES: Urolithiasis, hematuria, renal colic. There are no ureteral stones and no hydronephrosis. (See below as I explained to the patient below): The source of the pain is not exactly clear, but there is definitely stone, and we are planning to try to take care of it. PROCEDURE: Exam under anesthesia, cystoscopy, retrograde pyelogram, insertion of left double-J stent. COMPLICATIONS: There were no complications. BLOOD LOSS: Less than 10 mL. At the termination of the procedure, the patient had a good double-J stent in good location. The stone is very well outlined. As seen on the histopathology technician film, it looks like a calcified stone. It is fairly large, it is actually oblong although rectangular almost. INDICATIONS: See history and physical for further details and consultation. A very pleasant lady who has some kind of abdominal pain and flank pain. It sounds like it is renal colic, but the CAT scan shows a stone, but no hydro. We discussed the options. Either way, she wants me to take care of the stone, and I think that is a reasonable approach. Although I do not see, maybe she is passing stone fragments intermittently. Either way, there is no hydronephrosis, so we discussed the options, and we planned to place a stent today as a step 1, and then we are going to plan for the treatment of the stone. As soon as she is medically cleared, we will stop her aspirin, etc. Stop any blood thinners, etc. DESCRIPTION OF PROCEDURE: After obtaining informed consent, the patient was placed on the table. Routine monitor was placed. Time-out was called to confirm the patient and positioning. We identified the ureteral orifice. The patient was taken today for left retrograde pyelogram. I do want to mention very briefly that in the bladder itself it looks like wide chronic cystitis. Anyway, we retrograde pyelogram'd, there was really no hydronephrosis. The outline of the stone is noted in the lower pole of the kidney. We passed the double-J stent actually to the middle pole. It curled nicely in the renal pelvis rather. The patient tolerated the procedure well without complications. There was no complication at the termination of the procedure. The patient has a well-located double-J stent. The bladder and the kidney confirmed nice curls. PLAN: We are going to offer the patient different treatment options. We are going to treat. We will discuss the possibility for percutaneous nephrostomy, lithotomy. Discussed the possibility of cystoscopy, ureteroscopy, laser lithotripsy. We discussed the possibility for shockwave lithotripsy, and I think based on the size of his stone, it is going to require at least a couple of more treatments that we are able to. I explained to the patient before we started doing nothing is also possible, but once we start, we want it to get it completely stone-free. We want to not just relieve the stone burden, but we want to get it down to absent completely, and we will later follow up with a CAT scan to confirm this. Reilly Castellanos MD
[2018-03-29] MEDS: Meropenem 500 MG in Sodium Chloride 0.9% 100 ML IVPB SCH ×2 (03:58→13:04)
--- NOTE | 2018-03-29 07:09 | US ---
Date of service: 03/28/2018 HISTORY: elevated transaminases COMPARISON: Comparison is made to the previous CT dated 03/27/2018 previous ultrasound of the abdomen dated 01/01/2016 TECHNIQUE: Sonographic evaluation of the abdomen. FINDINGS: LIVER: Measures 18 cm. Heterogeneous and increase echogenicity of the liver parenchyma. There is hypoechoic lesion at the right liver lobe measures 1.6 x 0.9 x 1.4 centimeter. Heterogeneous echotexture of the liver with possible focal fatty sparing noted at the left liver lobe measures 6.7 x 2.7 centimeter. GALLBLADDER: Status post cholecystectomy COMMON BILE DUCT: Measures 8.5 mm. No stones. No dilatation. PANCREAS: Unremarkable as visualized. No mass. No ductal dilatation. RIGHT KIDNEY: Measures 12.4 x 4.9 x 5.3cm. Normal echogenicity. No calculus, mass, or hydronephrosis. There is a cyst seen at the right kidney measures 1.8 x 1.2 x 1.1 centimeter LEFT KIDNEY: Measures 11.7 x 5.7 x 5.2cm. There is nonobstructing calculus at the mid to lower pole of the left kidney measures 1.7 x 0.4 x 1.1 centimeter. No evidence of hydronephrosis. SPLEEN: There is echogenic lesion seen in the spleen measures 0.8 x 0.8 centimeter. The spleen measures 9 centimeter. AORTA: No aneurysmal dilatation. IVC: Unremarkable. OTHER FINDINGS: None. IMPRESSION: Heterogeneous increase echogenicity of the liver with possible focal fatty sparing at the left liver lobe. Hypoechoic lesion at the right liver lobe measures 1.6 x 0.9 x 1.4 centimeter. If clinically warranted further assessment by MRI may be obtained. Right renal parapelvic cyst. Nonobstructing left renal calculus. Sub centimeter echogenic lesion noted in the spleen may represent benign hemangioma.
--- NOTE | 2018-03-29 07:35 | CP.PCM.PN ---
Subjective - Date & Time of Evaluation Date of Evaluation: 03/29/18 Time of Evaluation: 07:00 - Subjective Subjective: PGY2- Medicine progress note for Dr. Beverly Patient having left lower quadrant pain after stent placement. Patient denies any chest pain, nausea, vomiting, constipation, or diarrhea. Patient still having hematuria and dysuria. Objective - Vital Signs/Intake and Output Vital Signs (last 24 hours): Temp Pulse Resp BP Pulse Ox 98.8 F 80 20 147/84 95 03/28/18 23:00 03/28/18 23:00 03/28/18 23:00 03/28/18 23:00 03/28/18 23:00 Intake and Output: 03/29/18 03/29/18 06:59 18:59 Intake Total 1900 Balance 1900 - Medications Medications: Current Medications Albuterol (Ventolin Hfa 90 Mcg/Actuation (8 G)) 2 puff INH RQ4 PRN PRN Reason: Wheezing Albuterol/Ipratropium (Duoneb 3 Mg/0.5 Mg (3 Ml) Ud) 3 ml INH RQ4 PRN PRN Reason: sob Hydroxychloroquine Sulfate (Plaquenil) 200 mg PO BID BRENDAN PRN Reason: Protocol Last Admin: 03/28/18 19:00 Dose: 200 mg Dextrose/Sodium Chloride (Dextrose 5%/0.45% Ns 1000 Ml) 1,000 mls @ 100 mls/hr IV .Q10H PENDING SALE TO [facility] Last Admin: 03/28/18 20:58 Dose: Not Given Meropenem 500 mg/ Sodium (Chloride) 100 mls @ 100 mls/hr IVPB Q8H BRENDAN PRN Reason: Protocol Stop: 04/06/18 13:01 Last Admin: 03/29/18 03:58 Dose: 100 mls/hr Lactated Ringer's (Lactated Ringer's) 1,000 mls @ 100 mls/hr IV .Q10H BRENDAN Last Admin: 03/29/18 00:23 Dose: Not Given Morphine Sulfate (Morphine) 2 mg IVP Q4 PRN PRN Reason: Pain, moderate (4-7) Last Admin: 03/29/18 04:01 Dose: 2 mg Rosuvastatin Calcium (Crestor) 5 mg PO HS BRENDAN Last Admin: 03/27/18 21:28 Dose: 5 mg Tamsulosin HCl (Flomax) 0.4 mg PO DAILY BRENDAN Last Admin: 03/27/18 10:22 Dose: 0.4 mg - Labs Labs: 03/28/18 06:10 03/28/18 06:10 PT 12.6 SECONDS (9.7-12.2) H 03/28/18 06:10 INR 1.2 03/28/18 06:10 APTT 40 SECONDS (21-34) H 03/28/18 06:10 - Additional Findings Additional findings: - Constitutional Appears: No Acute Distress - Head Exam Head Exam: ATRAUMATIC, NORMAL INSPECTION - Eye Exam Eye Exam: EOMI, Normal appearance - ENT Exam ENT Exam: Mucous Membranes Moist - Respiratory Exam Respiratory Exam: Decreased Breath Sounds, NORMAL BREATHING PATTERN. absent: Rales, Wheezes, Respiratory Distress - Cardiovascular Exam Cardiovascular Exam: REGULAR RHYTHM, +S1, +S2 - GI/Abdominal Exam GI & Abdominal Exam: Soft, Normal Bowel Sounds. absent: Distended, Firm, Tenderness - Back Exam Back Exam: CVA tenderness (L), tenderness (left flank). absent: CVA tenderness (R), rash noted - Neurological Exam Neurological Exam: Alert, Awake, Oriented x3 - Psychiatric Exam Psychiatric exam: Normal Affect, Normal Mood - Skin Skin Exam: Dry, Intact, Normal Color, Warm Assessment and Plan - Assessment and Plan (Free Text) Assessment: Nephrolithiasis -Abdomen/pelvis CT (03/27): lower pole left renal calculi w/o hydronephrosis. liver cyst -Urology (Dr. Howie Castellanos) consulted. Help appreciated. -03/28/18: Cystoscopy with left ureteral stent insertion -Morphine 2mg IVP Q4 PRN for pain management. -Merrem 500mg IV Q8h Pyelonephritis -Urine cultures during previous admission: + Proteus Mirabilis -Patient has right PICC line (placed on 03/15) for a total of 14 days of antibiotics. Patient was to continue Invanz 1g IV for 12 doses. -Patient had 10th dose of Invanz 1gm IV on 03/26/18 prior to admission. -ID consulted, Dr. Hitcchock; help appreciated -Merrem 500mg IV Q8h for a total of 10 days (started on 03/27/[address] Hitchcock; Invanz is not available inpatient) -Abd Xray (03/28/18): stable abdomen KUB radiogrpah including ovoid moderate size calcification at the region of the mid left renal silhouette. nonobstructive bowel gas pattern. Elevated transaminases -downtrending on 03/29/18 -Possibly due to Cipro (given on 03/26/18) -Discontinued Crestor and Flomax -Abdominal US 03/28/18: heterogenous increase echogenicity of the liver with possible focal fatty sparing at the left liver lobe. hypoechoic lesion at the right liver lobe measures 1.6 x .9 x 1.4 cm. if clinically warranted further assessment by MRI may be obtained. right renal parapelvic cyst. nonobstructing left renal calculus. sub centimeter echogenic lesion noted in the spleen may represent benign hemangioma -Continue to monitor History of Pulmonary Fibrosis -Continue Duonebs Q4h prn -Continue home medication Ventolin prn Hx of SLE -Continue home medication Plaquinil 200mg PO BID History of Hypercholesterolemia -Discontinued Crestor 5mg PO HS BRENDAN due to elevated transaminases PPX -SCDs Patient to be discharged today as per Dr. Beverly and Dr. Castellanos. Patient will need to follow up with Dr. Castellanos for lithotripsy and then stent removal. Patient will need to go to infusion center for Invanz daily for 9 days as per Naldo (patient had prior 12 days of infusions- total of 21 days) Discussed with Dr. Beverly.
[2018-03-29] MEDS: Dextrose 5%/0.45% NS 1,000 ML IV SCH (07:49)
[2018-03-29 07:54] LABS: BASO % 0.2 % (0.0-2.0); EOS # 0.1 K/uL (0.0-0.7); EOS % 0.6 % (0.0-4.0); HEMOGLOBIN 13.4 g/dL (11.0-16.0); LYMPH # 1.7 K/uL (1.0-4.3); LYMPH % 16.1 % (20.0-40.0); MEAN CELL VOLUME 92.4 fL (81.0-99.0); MEAN CORPUSCULAR HEMOGLOBIN 31.3 pg (27.0-31.0); MEAN CORPUSCULAR HGB CONC 33.9 g/dL (33.0-37.0); MEAN PLATELET VOLUME 8.5 fL (7.2-11.7); MONO # 0.6 K/uL (0.0-0.8); NEUT % 77.1 % (50.0-75.0); RBC 4.29 Mil/uL (3.80-5.20); RED CELL DISTRIBUTION WIDTH 13.8 % (11.5-14.5); WHITE BLOOD COUNT 10.3 K/uL (4.8-10.8)
[2018-03-29 08:16] LABS: ALB/GLOB RATIO 1.2 (1.0-2.1); ALBUMIN 3.6 g/dL (3.5-5.0); ALT/SGPT 582 U/L (9-52); AST/SGOT 239 U/L (14-36); BLOOD UREA NITROGEN 8 mg/dL (7-17); CALCIUM 8.9 mg/dl (8.6-10.4); GFR AFRICAN-AMERICAN > 60; GFR NON-AFRICAN AMERICAN > 60
--- NOTE | 2018-03-29 08:52 | RAD ---
Date of service: 03/28/2018 HISTORY: LEFT KIDNEY STONE COMPARISON: Abdomen KUB 03/28/2018. FINDINGS: BOWEL: Nonobstructive bowel gas pattern reiterated. Exax-nr-[id number] retained fecal material scattered throughout large-bowel. A moderate-sized ovoid calcific density is seen overlying the region of the mid left renal silhouette once again. No definitive abnormal calcifications the right renal silhouette. Two small calcification in the inferior pelvis are reiterated, potentially reflecting phleboliths but are nonspecific in appearance. No prominent free intrarenal gas. Solitary surgical clip again evident right upper quadrant abdomen. BONES: Normal. OTHER FINDINGS: None. IMPRESSION: Stable abdomen KUB radiograph including ovoid moderate-size calcification at the region the mid left renal silhouette. Nonobstructive bowel gas pattern.
--- NOTE | 2018-03-29 08:54 | RAD ---
Date of service: 03/28/2018 PROCEDURE: Intraoperative Fluoroscopy. HISTORY: LEFT KIDNEY STONE FINDINGS: Fluoroscopic assistance was provided for left uretero-nephrography and left stent insertion. Please refer to the operative report from [facility]. Cumulative radiation dose [id number] mGym2 with 9.7 seconds of fluoroscopy time utilized.
--- NOTE | 2018-03-29 14:35 | PCM.URO ---
Urology Progress Note - General General: Tolerating Diet - Subjective Abdominal Pain: No Flank Pain: Yes (improved, less pain) Vomiting: No Voiding Well: Yes Dysuria: Yes Hematuria: Yes Stone Passed: No Chest Pain: No Fever & Chills: No - Objective Lab Studies: Reviewed (urine culture negative) Lab Results Last 24 Hours: Laboratory Results - last 24 hr 03/29/18 03/29/18 07:00 07:00 WBC 10.3 D RBC 4.29 Hgb 13.4 Hct 39.6 MCV 92.4 MCH 31.3 H MCHC 33.9 RDW 13.8 Plt Count 270 MPV 8.5 Neut % (Auto) 77.1 H Lymph % (Auto) 16.1 L Stanton % (Auto) 6.0 Eos % (Auto) 0.6 Baso % (Auto) 0.2 Neut # (Auto) 8.0 H Lymph # (Auto) 1.7 Stanton # (Auto) 0.6 Eos # (Auto) 0.1 Baso # (Auto) 0.0 Sodium 141 Potassium 3.7 Chloride 107 Carbon Dioxide 24 Anion Gap 13 BUN 8 Creatinine 0.5 L Est GFR ( Amer) > 60 Est GFR (Non-Af Amer) > 60 Random Glucose 104 Calcium 8.9 Total Bilirubin 0.4 AST 239 H D ALT 582 H D Alkaline Phosphatase 186 H Total Protein 6.5 Albumin 3.6 Globulin 2.9 Albumin/Globulin Ratio 1.2 Intake & Output: Intake & Output 03/28/18 03/29/18 03/29/18 18:59 06:59 18:59 Intake Total 1350 1900 Balance 1350 1900 Intake: IV 500 Intake, IV Amount 850 1600 Right Upper arm 850 1600 Oral 300 Other: # Voids Urine, Voided 3 4 # Bowel Movements 0 Vital Signs: Vital Signs - 24 hr 03/28/18 03/28/18 03/29/18 15:30 23:00 08:00 Temperature 97.4 F L 98.8 F 98.5 F Pulse Rate 88 80 79 Respiratory 20 20 20 Rate Blood Pressure 133/80 147/84 145/85 O2 Sat by Pulse 97 95 96 Oximetry - Physical Exam Abdominal Exam: Soft, Non-Tender, Non-Distended Back: No CVA Tenderness - Plan Additional Information: Imp: stable p cysto, stent insertion. Urolithiasis - Date & Time of Note Date: 03/29/18 Time: 14:35
--- NOTE | 2018-03-29 15:23 | CP.PCM.PN ---
Subjective - Date & Time of Evaluation Date of Evaluation: 03/29/18 Time of Evaluation: 09:00 - Subjective Subjective: c/o pain alert Objective - Vital Signs/Intake and Output Vital Signs (last 24 hours): Temp Pulse Resp BP Pulse Ox 98.5 F 79 20 145/85 96 03/29/18 08:00 03/29/18 08:00 03/29/18 08:00 03/29/18 08:00 03/29/18 08:00 Intake and Output: 03/29/18 03/29/18 06:59 18:59 Intake Total 1900 1000 Balance 1900 1000 - Medications Medications: Current Medications Albuterol (Ventolin Hfa 90 Mcg/Actuation (8 G)) 2 puff INH RQ4 PRN PRN Reason: Wheezing Albuterol/Ipratropium (Duoneb 3 Mg/0.5 Mg (3 Ml) Ud) 3 ml INH RQ4 PRN PRN Reason: sob Hydroxychloroquine Sulfate (Plaquenil) 200 mg PO BID BRENDAN PRN Reason: Protocol Last Admin: 03/29/18 10:22 Dose: 200 mg Dextrose/Sodium Chloride (Dextrose 5%/0.45% Ns 1000 Ml) 1,000 mls @ 100 mls/hr IV .Q10H BRENDAN Last Admin: 03/29/18 07:49 Dose: 100 mls/hr Meropenem 500 mg/ Sodium (Chloride) 100 mls @ 100 mls/hr IVPB Q8H BRENDAN PRN Reason: Protocol Stop: 04/06/18 13:01 Last Admin: 03/29/18 13:04 Dose: 100 mls/hr Lactated Ringer's (Lactated Ringer's) 1,000 mls @ 100 mls/hr IV .Q10H BRENDAN Last Admin: 03/29/18 10:00 Dose: Not Given Morphine Sulfate (Morphine) 2 mg IVP Q4 PRN PRN Reason: Pain, moderate (4-7) Last Admin: 03/29/18 12:58 Dose: 2 mg Rosuvastatin Calcium (Crestor) 5 mg PO HS [facility] Last Admin: 03/27/18 21:28 Dose: 5 mg Tamsulosin HCl (Flomax) 0.4 mg PO DAILY BRENDAN Last Admin: 03/27/18 10:22 Dose: 0.4 mg - Labs Labs: 03/29/18 07:00 08/01/18 07:00 PT 12.6 SECONDS (9.7-12.2) H 03/28/18 06:10 INR 1.2 03/28/18 06:10 APTT 40 SECONDS (21-34) H 03/28/18 06:10 - Constitutional Appears: Non-toxic, Chronically Ill - Head Exam Head Exam: NORMOCEPHALIC - Eye Exam Eye Exam: PERRL - ENT Exam ENT Exam: Mucous Membranes Dry - Neck Exam Neck Exam: absent: Lymphadenopathy - Respiratory Exam Respiratory Exam: Decreased Breath Sounds - Cardiovascular Exam Cardiovascular Exam: REGULAR RHYTHM Assessment and Plan (1) Pyelonephritis Status: Acute (2) Renal colic on left side Status: Acute (3) Pyelonephritis, acute Status: Acute
[2018-03-29 15:50] VITALS: BP 138/85; PULSE 76; TEMP 98.1; O2SAT 97
== END 2018-03-29 18:36 | disposition home or self-care (01) | DRG 323 ==
LOC: C.ER 20:32 → C.9E 03-27 05:16 → C.5S 03-27 06:00 → C.3T 03-27 15:11
PROVIDERS: ADMIT Internal Medicine Pulmonary Disease; ATTEND Internal Medicine Pulmonary Disease
PROC: BT1FZZZ Fluoroscopy of Left Kidney, Ureter and Bladder (ICD-10-PCS; 2018-03-28)
PROC: 0T778DZ Dilation of Left Ureter with Intraluminal Device, Via Natural or Artificial Opening Endoscopic (ICD-10-PCS; principal; 2018-03-28 13:45)
DX: N20.0 Calculus of kidney (principal); N10 Acute pyelonephritis; M32.9 Systemic lupus erythematosus, unspecified; N30.21 Other chronic cystitis with hematuria; J84.10 Pulmonary fibrosis, unspecified; J45.909 Unspecified asthma, uncomplicated; F17.210 Nicotine dependence, cigarettes, uncomplicated; E78.00 Pure hypercholesterolemia, unspecified; M06.9 Rheumatoid arthritis, unspecified; Z90.49 Acquired absence of other specified parts of digestive tract; Z87.442 Personal history of urinary calculi

== ENCOUNTER 2018-03-31 10:23 | Emergency (ER) | payer MEDICAID ==
[2018-03-31 10:23] VITALS: BMI 29.0
[2018-03-31] MEDS ORDERED: Sodium Chloride 0.9% 1,000 ML IV ONE (11:03)
--- NOTE | 2018-03-31 11:04 | C.PDOC ---
History Of Present Illness 62 year old female with PMHx of left kidney stone s/p Left stent placement on 03/29/18 by , recent admissions ( 03/11/18-03/16/18, 03/26/18-03/29/18) due to left kidney stone, intractable left flank pain presents to the ED for re- evaluation of left flank pain radiating to suprapubic area developed for past 2- 3 days. Patient was discharged 2 days ago from the hospital, was unable to refill Rx for percocets. Otherwise, denies fever, chills, sore throat, CP, SOB, dyspnea, palpitation, nausea, vomiting, diarrhea, UTI sx, hematuria. Ambulate to ED, appears anxious, in pain, crying. Time Seen by Provider: 03/31/18 10:47 Chief Complaint (Nursing): Back Pain History Per: Patient History/Exam Limitations: no limitations Onset/Duration Of Symptoms: Days Current Symptoms Are (Timing): Still Present Quality Of Discomfort: "Pain" Associated Symptoms: None Exacerbating Factor(s): Movement Additional History Per: Prior Records Past Medical History Reviewed: Historical Data, Nursing Documentation, Vital Signs Vital Signs: Last Vital Signs Temp 98 F 03/31/18 14:20 Pulse 76 03/31/18 14:20 Resp 18 03/31/18 14:20 BP 136/72 03/31/18 14:20 Pulse Ox 98 03/31/18 14:20 - Medical History PMH: Anxiety, Arthritis, Asthma, Colonic Polyps, Depression (NO MEDS AT PRESENT) , Gastritis, Gall Bladder Disease, Hypercholesterolemia, Rheumatoid Arthritis Denies: Chronic Kidney Disease Surgical History: Cholecystectomy, Endoscopy - [facility] Procedures CLOSED ENDOSCOPIC BIOPSY OF LARGE INTESTINE (04/11/14) COLONOSCOPY (11/27/13) DILATION OF LEFT URETER WITH INTRALUMINAL DEVICE, ENDO (03/27/18) ESOPHAGOGASTRODUODENOSCOPY [EGD] W/CLOSED BIOPSY (04/23/14) FLUOROSCOPY OF LEFT KIDNEY, URETER AND BLADDER (03/27/18) INSERTION OF INFUSION DEV INTO SUP VENA CAVA, PERC APPROACH (03/14/18) ULTRASONOGRAPHY OF SUPERIOR VENA CAVA, GUIDANCE (03/14/18) Family History: States: No Known Family Hx - Social History Hx Alcohol Use: No Hx Substance Use: No - Immunization History Hx Tetanus Toxoid Vaccination: No Hx Influenza Vaccination: No Hx Pneumococcal Vaccination: No Review Of Systems Except As Marked, All Systems Reviewed And Found Negative. Constitutional: Negative for: Fever, Chills Gastrointestinal: Positive for: Abdominal Pain (Left flank pain ). Negative for : Nausea, Vomiting, Diarrhea Physical Exam - Physical Exam Appears: Non-toxic, Other (in pain) Skin: Normal Color, Warm, Dry, No Rash, No Ecchymosis Head: Normacephalic Eye(s): bilateral: PERRL Nose: No Flaring, No Discharge Oral Mucosa: Moist, No Drooling Throat: No Erythema, No Drooling Neck: Trachea Midline, Supple Chest: Symmetrical, No Tenderness Cardiovascular: Rhythm Regular, No Murmur, No JVD Respiratory: No Decreased Breath Sounds, No Accessory Muscle Use, No Rhonchi, No Stridor, No Wheezing Gastrointestinal/Abdominal: Soft, No Tenderness, No Distention, No Guarding, Other (mild left flank tenderness) Back: No CVA Tenderness Extremity: Normal ROM, No Pedal Edema, No Deformity Neurological/Psych: Oriented x3, Normal Speech ED Course And Treatment - Laboratory Results Result Diagrams: 03/31/18 11:09 03/31/18 11:09 Lab Interpretation: No Changes Compared To Prior Results O2 Sat by Pulse Oximetry: 98 (RA) Pulse Ox Interpretation: Normal - Other Rad Abd xray X-Ray: Interpreted by Me, Read By Radiologist Interpretation: Creator : Namrata Mittal MD. Dictator : Namrata Mittal MD. Family Worker : Specialist Physicians : Namrata Mittal MD. Approver2 : Report Date : 03/31/2018 13:03:38. My Comment : . Date of service: 03/31/2018. HISTORY: Left flank pain s/p stent. COMPARISON: 03/28/2018. FINDINGS: There is a 1.8 cm stone in the left kidney. There is interval placement of a left double-J ureteral stent which is in customary position. No right renal calcifications. BOWEL: Normal. No obstruction. No free air. BONES: Normal. OTHER FINDINGS: Surgical clips in the right upper quadrant are related to prior cholecystectomy.. IMPRESSION: Left double-J ureteral stent remains in customary position. Redemonstration of 1.8 cm left lower pole renal stone. Progress Note: Pt was OBS in ED for 3 hours and reports moderate improvement in pain. On re-eval, pt is afebrile, hemodynamically stable. Non-toxic. Tolerate PO well in ED. PulseOx 98% on RA. ENT: no acute findings. Neck: Supple, (-) JVD. Lungs: CTA B/L, BS equal B/L. CVS: (+)S1S2, reg. Abd: benign, (-) guarding , (-) rebound. BAck: (-) CVA tenderness. Neurologically intact. Blood work review and appears baseline. Case discussed with DR.E. Castellanos, recommend imaging to confirm stability of left kidney stent. Imaging review and re- discussed with . Discharge with pain medication, FLomax and outpt f/u recommend now. results review and discussed with patient. Pt agrees with plan. Pt is stable for discharge now. Medical Decision Making Medical Decision Makin Spoke to Dr. Castellanos about course of treatment. Disposition Counseled Patient/Family Regarding: Studies Performed, Diagnosis, Need For Followup, Rx Given - Disposition Referrals: Dereje Castellanos MD [Staff Provider] - Disposition: HOME/ ROUTINE Disposition Time: 14:03 Condition: STABLE Additional Instructions: Take medication as prescribed Encourage fluids Follow up with on Tuesday04/03/18 for further evaluation and treatment. Prescriptions: oxyCODONE/Acetaminophen [Percocet 5/325 mg Tab] 1 tab PO QID PRN #10 tab PRN Reason: Pain Tamsulosin [Flomax] 0.4 mg PO DAILY #14 cap Instructions: Kidney Stones in Adults Forms: [facility] (Slovak) - Clinical Impression Clinical Impression: Renal colic on left side, Kidney stone - PA / BATTER[employer] MECH[employer]IC / Resident Statement MD/DO has reviewed & agrees with the documentation as recorded. - Scribe Statement The provider has reviewed the documentation as recorded by the Scribe Amna Paneque All medical record entries made by the Scribe were at my direction and personally dictated by me. I have reviewed the chart and agree that the record accurately reflects my personal performance of the history, physical exam, medical decision making, and the department course for this patient. I have also personally directed, reviewed, and agree with the discharge instructions and disposition.
[2018-03-31 11:16] LABS: BASO % 0.2 % (0.0-2.0); EOS # 0.1 K/uL (0.0-0.7); HEMOGLOBIN 14.7 g/dL (11.0-16.0); LYMPH # 1.8 K/uL (1.0-4.3); LYMPH % 14.2 % (20.0-40.0); MEAN CELL VOLUME 92.1 fL (81.0-99.0); MEAN CORPUSCULAR HEMOGLOBIN 31.2 pg (27.0-31.0); MEAN CORPUSCULAR HGB CONC 33.8 g/dL (33.0-37.0); MEAN PLATELET VOLUME 8.1 fL (7.2-11.7); MONO # 0.7 K/uL (0.0-0.8); MONO % 6.1 % (0.0-10.0); NEUT # 9.7 K/uL (1.8-7.0); NEUT % 78.5 % (50.0-75.0); RBC 4.71 Mil/uL (3.80-5.20); RED CELL DISTRIBUTION WIDTH 14.1 % (11.5-14.5); WHITE BLOOD COUNT 12.4 K/uL (4.8-10.8)
[2018-03-31 11:28] LABS: ALB/GLOB RATIO 1.4 (1.0-2.1); ALBUMIN 4.5 g/dL (3.5-5.0); ALT/SGPT 306 U/L (9-52); AST/SGOT 59 U/L (14-36); BLOOD UREA NITROGEN 11 mg/dL (7-17); CALCIUM 9.9 mg/dl (8.6-10.4); GFR AFRICAN-AMERICAN > 60; GFR NON-AFRICAN AMERICAN > 60; LIPASE 108 U/L (23-300)
[2018-03-31] MEDS ORDERED: Oxycodone/Acetaminophen 5/325 mg Tab PO STA (12:31)
[2018-03-31 12:34] LABS: SQUAMOUS EPITHIAL 4 /hpf (0-5); URINE BACTERIA OCC (<OCC); URINE BILIRUBIN NEGATIVE (NEGATIVE); URINE BLOOD 3+ (NEGATIVE); URINE CLARITY Hazy (Clear); URINE COLOR Red (YELLOW); URINE GLUCOSE (UA) NORMAL (Normal); URINE LEUKOCYTE ESTERASE 2+ Leu/uL (Negative); URINE PROTEIN 2+ mg/dL (NEGATIVE); URINE UROBILINOGEN NORMAL mg/dL (0.2-1.0)
[2018-03-31 12:43] VITALS: O2SAT 98
[2018-03-31] MEDS ORDERED: Oxycodone/Acetaminophen 5/325 mg Tab ONE (13:02)
--- NOTE | 2018-03-31 13:05 | RAD ---
Date of service: 03/31/2018 HISTORY: Left flank pain s/p stent COMPARISON: 03/28/2018 FINDINGS: There is a 1.8 cm stone in the left kidney. There is interval placement of a left double-J ureteral stent which is in customary position. No right renal calcifications. BOWEL: Normal. No obstruction. No free air. BONES: Normal. OTHER FINDINGS: Surgical clips in the right upper quadrant are related to prior cholecystectomy.. IMPRESSION: Left double-J ureteral stent remains in customary position. Redemonstration of 1.8 cm left lower pole renal stone.
[2018-03-31 14:21] VITALS: BP 136/72; PULSE 76; RESP 18; TEMP 98
== END 2018-03-31 14:21 | disposition home or self-care (01) ==
LOC: C.ER 10:23
DX: N20.0 Calculus of kidney (principal); E78.00 Pure hypercholesterolemia, unspecified; K82.9 Disease of gallbladder, unspecified
CPT/HCPCS: 74019; 80053; 81001; 83690; 85025; 87086; 96361; 96374; 99285; J1885; J7030